=== PATIENT | female | born 1950 | race Asian ===

== ENCOUNTER 2016-12-09 00:59 | Emergency (ER) | payer OTHER ==
[2016-12-09 01:21] VITALS: PULSE 79; TEMP 98.2; BMI 29.6
--- NOTE | 2016-12-09 02:07 | PDOC ---
History of Present Illness - General History Source: Patient Exam Limitations: No Limitations - History of Present Illness Initial Comments: 12/09/16 02:38 The patient is a 66 year old female with a significant past medical history of CKD, HTN, depression, hypothyroidism, severe arthritis in left knee, and lyme disease (3 years ago) who presents to the ED with complaints of bilateral lower extremity rash for 2 weeks and bilateral lower extremity edema for 3 days. The patient reports she was sitting on the grass in her yard 3 weeks ago. She states that she notes multiple bug bites in her bilateral lower extremities. She reports she developed a rash throughout her bilateral lower extremities 2 weeks ago. Denies itching. She states she also developed dry patches throughout her bilateral lower extremities and breast after she developed the rash. Patient reports progressively worsening intermittent bilateral lower extremity edema for 3 days. She reports she is not urinating as frequently but is drinking water. Patient had an ultrasound done on 12/05/16 that showed a distended bladder without wall thickening, bilateral atrial jets, and tace of postvoid urine residue. Denies fevers or chills. Denies chest pain or shortness of breath. Denies dysuria or hematuria. Denies abdominal pain, nausea, vomiting, or diarrhea. Denies any other symptoms. Surgical hx: Hysterectomy 20 years ago. <Scott Meléndez - Last Filed: 12/09/16 02:38> <Kenia Valdivia - Last Filed: 12/12/16 22:24> - General Chief Complaint: Edema Stated Complaint: URINARY PROBLEM, EDEMA Time Seen by Provider: 12/09/16 01:07 Past History <Scott Meléndez - Last Filed: 12/09/16 02:38> - Past Medical History CVA: Yes (LT SIDED WEAKNESS.) HTN: Yes Hypercholesterolemia: Yes Psychiatric Problems: Yes (DEPRESSION.) Thyroid Disease: Yes Other medical history: depression - Surgical History Abdominal Surgery: Yes - Psycho/Social/Smoking Cessation Hx Anxiety: No Suicidal Ideation: No Smoking History: Never smoked Information on smoking cessation initiated: No Hx Alcohol Use: No Drug/Substance Use Hx: No Substance Use Type: None <Kenia Valdivia - Last Filed: 12/12/16 22:24> - Past Medical History Allergies/Adverse Reactions: Allergies Allergy/AdvReac Type Severity Reaction Status Date / Time No Known Allergies Allergy Verified 01/13/16 02:04 Home Medications: Ambulatory Orders Divalproex [Depakote -] 500 mg PO BID 04/20/14 Rosuvastatin Calcium [Crestor] 10 mg PO HS 02/23/15 Furosemide [Lasix -] 10 mg PO DAILY #30 tablet 01/14/16 Alprazolam [Xanax] 0.5 mg PO PRN 12/09/16 Carvedilol [Coreg -] 5 mg PO BID 12/09/16 Paroxetine HCl [Paxil -] 12.5 mg PO DAILY 12/09/16 Review of Systems - Review of Systems Able to Perform ROS?: Yes Comments:: 12/09/16 02:39 CONSTITUTIONAL: Absent: fever, chills, diaphoresis, generalized weakness, malaise, loss of appetite HEENT: Absent: rhinorrhea, nasal congestion, throat pain, throat swelling, difficulty swallowing, mouth swelling, ear pain, eye pain, visual Changes CARDIOVASCULAR: Absent: chest pain, syncope, palpitations, irregular heart rate, lightheadedness , peripheral edema RESPIRATORY: Absent: cough, shortness of breath, dyspnea with exertion, orthopnea, wheezing, stridor, hemoptysis GASTROINTESTINAL: Absent: abdominal pain, abdominal distension, nausea, vomiting, diarrhea, constipation, melena, hematochezia GENITOURINARY: + decrease in urinary output Absent: dysuria, frequency, urgency, hesitancy, hematuria, flank pain, genital pain MUSCULOSKELETAL: + leg swelling Absent: myalgia, arthralgia SKIN: + bug bites, rash, dry patches Absent: itching, pallor HEMATOLOGIC/IMMUNOLOGIC: Absent: easy bleeding, easy bruising, lymphadenopathy, frequent infections ENDOCRINE: Absent: unexplained weight gain, unexplained weight loss, heat intolerance, cold intolerance NEUROLOGIC: Absent: headache, focal weakness or paresthesias, dizziness, unsteady gait, seizure, mental status changes, bladder or bowel incontinence PSYCHIATRIC: Absent: anxiety, depression, suicidal or homicidal ideation, hallucinations. All Other Systems: Reviewed and Negative <Scott Meléndez - Last Filed: 12/09/16 02:38> *Physical Exam - Vital Signs Last Vital Signs Temp Pulse Resp BP Pulse Ox 98.2 F 79 18 180/70 98 12/09/16 01:17 12/09/16 01:17 12/09/16 01:17 12/09/16 01:17 12/09/16 01:17 - Physical Exam Comments: 12/09/16 02:39 GENERAL: Well developed, well nourished. Awake and alert. No acute distress. HEENT: Normocephalic, atraumatic. PERRLA, EOMI. No conjunctival pallor. Sclera are non- icteric. Moist mucous membranes. Oropharynx is clear. NECK: Supple. Full ROM. No JVD. Carotid pulses 2+ and symmetric, without bruits. No thyromegaly. NCo lymphadenopathy. CARDIOVASCULAR: Regular rate and rhythm. No murmurs, rubs, or gallops. Distal pulses are 2+ and symmetric. PULMONARY: No evidence of respiratory distress. Lungs clear to auscultation bilaterally. No wheezing, rales or rhonchi. ABDOMINAL: Soft. Non-tender. Non-distended. No rebound or guarding. No organomegaly. Normoactive bowel sounds. MUSCULOSKELETAL Normal range of motion at all joints. No bony deformities or tenderness. No CVA tenderness. EXTREMITIES: + Minimal pitting edema limited to the ankles bilaterally. Left knee osteoarthritis. No cyanosis. No clubbing. SKIN: + fine petechial rash diffusely throughout lower extremities bilaterally. Warm and dry. Normal capillary refill. No jaundice. NEUROLOGICAL: + resting tremor Alert, awake, appropriate. Cranial nerves 2-12 intact. No deficits to light touch and temperature in face, upper extremities and lower extremities. No motor deficits in the in face, upper extremities and lower extremities. Normoreflexic in the upper and lower extremities. Normal speech. Toes are down- going bilaterally. Gait is normal without ataxia. PSYCHIATRIC: Cooperative. Good eye contact. Appropriate mood and affect. <Scott Meléndez - Last Filed: 12/09/16 02:38> - Vital Signs Last Vital Signs Temp Pulse Resp BP Pulse Ox 98.2 F 79 18 180/70 98 12/09/16 01:17 12/09/16 01:17 12/09/16 01:17 12/09/16 01:17 12/09/16 01:17 <Kenia Valdivia - Last Filed: 12/12/16 22:24> ED Treatment Course - LABORATORY CBC & Chemistry Diagram: 12/09/16 02:47 12/09/16 02:47 <Kenia Valdivia - Last Filed: 12/12/16 22:24> Medical Decision Making - Medical Decision Making 12/12/16 22:23 Pt comes with multiple complaints: ankle swelling, petechial rash and fear of lyme recurrence. Labs normal. I spoke to her PMD. He will follow her as an outpatient. SHe has been advised to take her meds as prescribed. <Kenia Valdivia - Last Filed: 12/12/16 22:24> *DC/Admit/Observation/Transfer - Attestations Scribe Attestion: 12/09/16 02:39 Documentation prepared by Scott Meléndez, acting as medical observer for Kenia Valdivia MD <Scott Meléndez - Last Filed: 12/09/16 02:38> - Discharge Dispostion Admit: No <Kenia Valdivia - Last Filed: 12/12/16 22:24> Diagnosis at time of Disposition: Petechiae, Renal insufficiency, mild - Discharge Dispostion Disposition: HOME Condition at time of disposition: Stable - Referrals Referrals: Nataliya Stanley MD [Primary Care Provider] - - Patient Instructions Printed Discharge Instructions: DI for Petechiae
[2016-12-09] MEDS ORDERED: ACETAMINOPHEN 325 MG TABLET (FP) PO ONE (02:31)
[2016-12-09] MEDS ORDERED: VALSARTAN 40 MG TABLET (FP) PO ONE (02:32)
[2016-12-09] MEDS ORDERED: VALSARTAN 80 MG TABLET (UD) ONE (02:37)
[2016-12-09] MEDS ORDERED: ACETAMINOPHEN 325 MG TABLET (FP) ONE (02:37)
[2016-12-09 02:55] LABS: BASOPHIL 0.6 % (0-2.0); MCH 28.7 pg (25.7-33.7); MCHC 32.2 g/dl (32.0-36.0); MEAN CELL VOLUME 89.1 fl (80-96); MEAN PLT VOLUME 7.6 fl (7.5-11.1); NEUTROPHILS 47.1 % (42.8-82.8); PLATELET COUNT 234 K/MM3 (134-434); RDW 16.1 % (11.6-15.6); WHITE BLOOD COUNT 5.2 K/mm3 (4.0-10.0)
[2016-12-09 03:12] LABS: INR 0.96 (0.82-1.09); PROTHROMBIN TIME (PATIENT) 10.5 SEC (9.98-11.88)
[2016-12-09 03:23] LABS: ALBUMIN 3.5 g/dl (3.4-5.0); BILIRUBIN,TOTAL 0.2 mg/dL (0.2-1.0); CALCIUM 8.8 mg/dL (8.5-10.1); COCKROFT - GAULT 45.2285; CREATININE 1.4 mg/dL (0.55-1.02); TOT PROT 6.6 g/dl (6.4-8.2)
[2016-12-09 04:52] VITALS: BP 160/88
== END 2016-12-09 04:52 | disposition home or self-care (01) ==
LOC: JER 00:59
DX: R21 Rash and other nonspecific skin eruption (principal); R23.3 Spontaneous ecchymoses; S80.862A Insect bite (nonvenomous), left lower leg, initial encounter; S80.861A Insect bite (nonvenomous), right lower leg, initial encounter; W57.XXXA Bitten or stung by nonvenomous insect and other nonvenomous arthropods, initial encounter; Y93.89 Activity, other specified; Y92.89 Other specified places as the place of occurrence of the external cause; I12.9 Hypertensive chronic kidney disease with stage 1 through stage 4 chronic kidney disease, or unspecified chronic kidney disease; N18.9 Chronic kidney disease, unspecified; F32.9 Major depressive disorder, single episode, unspecified; E03.9 Hypothyroidism, unspecified; M13.862 Other specified arthritis, left knee
CPT/HCPCS: 36415; 80053; 85025; 85610; 85730; 99282-25

== ENCOUNTER 2017-01-06 08:53 | Day surgery (SDC) | payer OTHER ==
[2017-01-03 14:01] VITALS: BMI 29.6
[2017-01-06] MEDS ORDERED: PROPOFOL 20 ML ONE ×3 (09:59)
[2017-01-06 11:12] VITALS: TEMP 97.7
[2017-01-06 11:56] VITALS: BP 126/52; PULSE 53
--- NOTE | 2017-01-07 13:13 | PATH ---
Surgical Pathology Report Patient Name: EJREMIAH KIM [facility]. Rec. #: [id number] /Age/Gender: 1950 (Age: 66) / F Account: [id number] Location: U-ENDOSCOPY Taken: 01/06/2017 Received: 01/06/2017 Reported: 01/07/2017 Physicians: Tonia Willard M.D. Specimen(s) Received BX PROXIMAL TRANSVERSE COLON POLYP Clinical History Screening, constipation Diverticulosis, colon polyps Final Diagnosis COLON, PROXIMAL TRANSVERSE, POLYP, BIOPSY: FRAGMENTS OF INFLAMMATORY/POSTINFLAMMATORY-TYPE POLYPS. Electronically Signed Amol Hussein M.D. Gross Description Received in formalin, labeled "biopsy proximal transverse colon polyps" are 3 abad, irregular portions of soft tissue ranging from 0.3-0.4 cm in greatest dimension. The specimens are submitted in toto in one cassette. /01/06/201701/06/2017
== END 2017-01-06 12:02 | disposition home or self-care (01) ==
LOC: JASU-ENDO 08:53
PROVIDERS: ATTEND Internal Medicine Gastroenterology
PROC: 0DBL8ZX Excision of Transverse Colon, Via Natural or Artificial Opening Endoscopic, Diagnostic (ICD-10-PCS; principal; 2017-01-06 10:00)
DX: Z12.11 Encounter for screening for malignant neoplasm of colon (principal); K59.00 Constipation, unspecified; I12.9 Hypertensive chronic kidney disease with stage 1 through stage 4 chronic kidney disease, or unspecified chronic kidney disease; N18.9 Chronic kidney disease, unspecified; E78.5 Hyperlipidemia, unspecified; F32.9 Major depressive disorder, single episode, unspecified; H26.9 Unspecified cataract; K57.30 Diverticulosis of large intestine without perforation or abscess without bleeding; K64.9 Unspecified hemorrhoids
CPT/HCPCS: 88305-TC

== ENCOUNTER 2018-06-23 08:35 | Emergency (ER) | payer OTHER ==
[2018-06-23 08:47] VITALS: BP 160/68; PULSE 72; TEMP 98; BMI 29.6
--- NOTE | 2018-06-23 09:41 | PDOC ---
History of Present Illness - General Chief Complaint: Injury Stated Complaint: FALL Time Seen by Provider: 06/23/18 09:09 History Source: Patient Exam Limitations: No Limitations - History of Present Illness Initial Comments: 06/23/18 09:40 Patient states tripped over uneven carpet last night falling onto her left side. Complains of pain to her left hip, buttock, extending down through her femur to her knee. Has known osteoarthritis of her knee joint and wears a splint but is concerned about fractures. Patient has been ambulatory since the injury. Took Motrin this morning Occurred: reports: yesterday Severity: reports: mild, moderate Pain Location: reports: back, lower extremity (left side ), pelvis Method of Injury: Yes: fall Modifying Factors: improves with: None Loss of Consciousness: no loss of consciousness Associated Symptoms (Fall): denies symptoms Past History - Travel Traveled outside of the country in the last 30 days: No Close contact w/someone who was outside of country & ill: No - Past Medical History Allergies/Adverse Reactions: Allergies Allergy/AdvReac Type Severity Reaction Status Date / Time No Known Allergies Allergy Verified 01/13/16 02:04 Home Medications: Ambulatory Orders Divalproex [Depakote -] 500 mg PO BID 04/20/14 Rosuvastatin Calcium [Crestor] 10 mg PO HS 02/23/15 Furosemide [Lasix -] 10 mg PO DAILY #30 tablet 01/14/16 Carvedilol [Coreg -] 6.25 mg PO BID 12/09/16 Cancer: No CVA: Yes (LT SIDED WEAKNESS.) COPD: No CHF: No HTN: Yes Hypercholesterolemia: Yes Psychiatric Problems: Yes (DEPRESSION.) Thyroid Disease: Yes Other medical history: depression - Surgical History Abdominal Surgery: Yes - Immunization History Immunization Up to Date: No - Suicide/Smoking/Psychosocial Hx Smoking History: Never smoked Have you smoked in the past 12 months: No Information on smoking cessation initiated: No Hx Alcohol Use: No Drug/Substance Use Hx: No Substance Use Type: None Hx Substance Use Treatment: No Review of Systems - Review of Systems Able to Perform ROS?: Yes Is the patient limited Angolan proficient: Yes Constitutional: Yes: Symptoms Reported, See HPI. No: Fever, Malaise HEENTM: Yes: See HPI. No: Symptoms Reported Respiratory: Yes: See HPI. No: Symptoms reported Musculoskeletal: Yes: Symptoms Reported, See HPI, Back Pain, Joint Pain (left hip / left knee ) Integumentary: Yes: See HPI. No: Symptoms Reported, Bruising All Other Systems: Reviewed and Negative *Physical Exam - Vital Signs Last Vital Signs Temp Pulse Resp BP Pulse Ox 98.0 F 72 16 160/68 98 06/23/18 08:42 06/23/18 08:42 06/23/18 08:42 06/23/18 08:42 06/23/18 08:42 - Physical Exam General Appearance: Yes: Nourished, Appropriately Dressed, Mild Distress HEENT: positive: MEG, Normal ENT Inspection, TMs Normal, Pharynx Normal Neck: positive: Supple Gastrointestinal/Abdominal: positive: Soft. negative: Tender Musculoskeletal: positive: Normal Inspection, CVA Tenderness, Decreased Range of Motion (limited but able to abduct/ forward flex with no pain or immobility. No deformity, no bruising, no crepitus or step-offs any bony prominence or long bone. Neurovascular intact to foot. Knees bilaterally have arthritic changes, right leg worse than the left no true laxity. The patient is ambulatory but walks slowly). negative: CVA Tenderness (R), Muscle Spasm, Vertebral Tenderness Extremity: positive: Normal Capillary Refill, Normal Range of Motion, Pelvis Stable (without tenderness) Integumentary: positive: Normal Color. 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 Patient encouraged to use Alexander wraps for support, cane to assist and ambulated and follow-up with orthopedist as needed *DC/Admit/Observation/Transfer Diagnosis at time of Disposition: Multiple contusions - Discharge Dispostion Disposition: HOME Condition at time of disposition: Stable Decision to Admit order: No - Referrals Referrals: Nataliya Stanlye MD [Primary Care Provider] - Ray Kelley MD [Staff Physician] - - Patient Instructions Printed Discharge Instructions: DI for Knee Sprain Additional Instructions: Rest, ice to area on and off for 15 minutes 4-6 times a day Avoid heavy lifting or exercise until pain and swelling is resolved or until further directed Keep area highly elevated to reduce swelling Use splints/Alexander wrap as directed Followup with orthopedist in one to 2 days if not improving, if significantly improved may wait one week for followup with orthopedist May use ibuprofen 2-200 mg tablets every 6 hours as needed for pain - Post Discharge Activity Forms/Work/School Notes: Back to Work
== END 2018-06-23 09:52 | disposition home or self-care (01) ==
LOC: JERFT 08:35
DX: T14.8XXA Other injury of unspecified body region, initial encounter (principal); W18.09XA Striking against other object with subsequent fall, initial encounter; Y93.89 Activity, other specified; Y92.89 Other specified places as the place of occurrence of the external cause; F32.9 Major depressive disorder, single episode, unspecified; E78.00 Pure hypercholesterolemia, unspecified; E07.9 Disorder of thyroid, unspecified; I10 Essential (primary) hypertension; Z86.73 Personal history of transient ischemic attack (TIA), and cerebral infarction without residual deficits
CPT/HCPCS: 73562-TC-LT-FY; 99281-25

== ENCOUNTER 2018-09-06 17:14 | Emergency (ER) | payer OTHER ==
[2018-09-06 17:29] VITALS: BP 154/80; PULSE 85; TEMP 97.3; BMI 29.2
--- NOTE | 2018-09-06 18:24 | PDOC ---
History of Present Illness - General Chief Complaint: Hematuria Stated Complaint: UTI SYMPTOMS Time Seen by Provider: 09/06/18 18:22 - History of Present Illness Initial Comments: 09/06/18 18:37 The patient is a 68 year old female with a PMH of HTN, BPD who presents to our ED c/o 6 day h/o hematuria. Patient she started feeling pain with urination around August 31 while traveling in Winter. Pain persisted and she started noticing blood earlier this week prompting her visit to an urgent care. Patient was prescribed a 14 day course of Macrobid as well as Pydrium. States she has been taking medication as prescribed. 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 The patients denies chest pain, shortness of breath, abdominal pain, nausea/ vomiting, diarrhea/constipation, lower extremity swelling. NKDA Surgical: hysterectomy Social: denies toxic habits PMD: Dr. Nataliya Stanley Past History - Past Medical History Allergies/Adverse Reactions: Allergies Allergy/AdvReac Type Severity Reaction Status Date / Time No Known Allergies Allergy Verified 01/13/16 02:04 Home Medications: Ambulatory Orders Divalproex [Depakote -] 500 mg PO BID 04/20/14 Rosuvastatin Calcium [Crestor] 10 mg PO HS 02/23/15 Furosemide [Lasix -] 10 mg PO DAILY #30 tablet 01/14/16 Carvedilol [Coreg -] 6.25 mg PO BID 12/09/16 Sulfamethoxazole/Trimethoprim [Bactrim Ds Tablet] 1 each PO BID #14 tablet 09/06 Cancer: No CVA: Yes (LT SIDED WEAKNESS.) COPD: No CHF: No HTN: Yes Hypercholesterolemia: Yes Psychiatric Problems: Yes (DEPRESSION.) Thyroid Disease: Yes - Surgical History Abdominal Surgery: Yes - Immunization History Immunization Up to Date: No - Suicide/Smoking/Psychosocial Hx Smoking History: Never smoked Have you smoked in the past 12 months: No Information on smoking cessation initiated: No Hx Alcohol Use: No Drug/Substance Use Hx: No Substance Use Type: None Hx Substance Use Treatment: No Review of Systems - Review of Systems Constitutional: No: Chills, Fever HEENTM: No: Recent change in vision Respiratory: No: Cough, Shortness of Breath Cardiac (ROS): No: Chest Pain, Lightheadedness, Palpitations, Syncope ABD/GI: No: Constipated, Diarrhea, Nausea, Vomiting : Yes: Dysuria, Hematuria *Physical Exam - Vital Signs Last Vital Signs Temp Pulse Resp BP Pulse Ox 97.3 F L 85 20 154/80 97 09/06/18 17:26 09/06/18 17:26 09/06/18 17:26 09/06/18 17:26 09/06/18 17:26 - Physical Exam General Appearance: Yes: Nourished, Appropriately Dressed HEENT: positive: Normal Voice, Hearing Grossly Normal Neck: positive: Trachea midline, Supple Respiratory/Chest: positive: Lungs Clear, Normal Breath Sounds Cardiovascular: positive: S1, S2. negative: Edema, JVD, Murmur Gastrointestinal/Abdominal: positive: Soft, Other (Mild TTP in B/L UQ) Musculoskeletal: negative: CVA Tenderness (R), CVA Tenderness (L) Extremity: positive: Normal Capillary Refill, Normal Inspection Integumentary: positive: Normal Color, Dry, Warm Neurologic: positive: Fully Oriented, Alert Moderate Sedation - Procedure Monitoring Vital Signs: Procedure Monitoring Vital Signs Temperature 97.3 F L 09/06/18 17:26 Pulse Rate 85 09/06/18 17:26 Respiratory Rate 20 09/06/18 17:26 Blood Pressure 154/80 09/06/18 17:26 O2 Sat by Pulse Oximetry (%) 97 09/06/18 17:26 ED Treatment Course - LABORATORY CBC & Chemistry Diagram: 09/06/18 19:00 09/06/18 19:04 Medical Decision Making - Medical Decision Making 09/06/18 18:46 68 year old female with hematuria, dysuria h/o recent travel in Winter. VS unremarkable. Mild abdominal TTP in B/L UQ. Frontal diagnosis: cystitis including treatment resistant UTI and hemorrhagic cystitis, nephrolithiasis, less likely malignancy. Will obtain UA/UCx and CT Abdomen. Reassess. 09/06/18 19:38 UA shows 3+ blood, 2+ LE, 418 WBC CBC shows no leukocytosis CMP unremarkable 09/06/18 21:06 Patient ambulatory, continues to c/o dysuria CT read pending 09/06/18 21:09 CT abdomen negative for acute pathology At this time, suspect patient has MDR UTI. Will give broader spectrum coverage , Bactrim as no prior Urine Cx in EMR. Discharge home with return precautions and PMD follow-up within the next 3 days. 09/06/18 21:30 Patient counseled on plan of care. I discussed the physical exam findings, ancillary test results and final diagnoses with the patient. I answered all of the patient's questions. The patient was satisfied with the care received and felt comfortable with the discharge plan and treatment plan. The patient will return to the Emergency Department with any new, persistent or worsening symptoms. *DC/Admit/Observation/Transfer Diagnosis at time of Disposition: Urinary tract infection - Discharge Dispostion Disposition: HOME Condition at time of disposition: Good Decision to Admit order: No - Prescriptions Prescriptions: Sulfamethoxazole/Trimethoprim [Bactrim Ds Tablet] 1 each PO BID #14 tablet - Referrals Referrals: Nataliya Stanley MD [Primary Care Provider] - - Patient Instructions Printed Discharge Instructions: DI for Urinary Tract Infection (UTI) Additional Instructions: We have sent a prescription to your pharmacy. Please take the entire antibiotic course as prescribed. Please make an appointment for evaluation by Dr. Stanley in the next 3 days. We are providing you with a copy of your CT scan. Please take this copy with you to your appointment. Return to the Emergency Department for any new/worsening/concerning symptoms. - Post Discharge Activity
[2018-09-06] MEDS ORDERED: SODIUM CHLORIDE 0.9% 500 ML INFUS.BAG IV ONE (18:37)
[2018-09-06 19:09] LABS: URINE APPEARANCE CLOUDY; URINE COLOR AMBER; URINE GLUCOSE (UA) NEGATIVE (NEGATIVE); URINE KETONE NEGATIVE (NEGATIVE); URINE LEUK ESTERASE 2+ (NEGATIVE); URINE NITRITE POSITIVE (NEGATIVE); URINE PROTEIN 2+ (NEGATIVE); URINE UROBILINOGEN 4.0 E.U/dl mg/dL (0.2-1.0)
[2018-09-06 19:20] LABS: EPI CELLS RARE /HPF (FEW)
[2018-09-06 19:26] LABS: BASO % 0.7 % (0-2.0); HEMATOCRIT 39.1 % (32.4-45.2); HEMOGLOBIN 13.1 GM/dL (10.7-15.3); LYMPH % 38.3 % (8-40); MCH 29.7 pg (25.7-33.7); MCHC 33.5 g/dl (32.0-36.0); MEAN CELL VOLUME 88.7 fl (80-96); MEAN PLT VOLUME 7.5 fl (7.5-11.1); MONO % 12.4 % (3.8-10.2); NEUT % 45.6 % (42.8-82.8); PLATELET COUNT 310 K/MM3 (134-434); RBC 4.41 M/mm3 (3.60-5.2); RDW 13.3 % (11.6-15.6); WHITE BLOOD COUNT 9.6 K/mm3 (4.0-10.0)
[2018-09-06 19:48] LABS: ALBUMIN 3.4 g/dl (3.4-5.0); ALK PHOS 118 U/L (45-117); ANION GAP 10 MMOL/L (8-16); BILIRUBIN,TOTAL 0.3 mg/dL (0.2-1); BLOOD UREA NITROGEN 23 mg/dL (7-18); CALCIUM 9.2 mg/dL (8.5-10.1); CHLORIDE 103 mmol/L (98-107); CO2 25 mmol/L (21-32); CREATININE 1.2 mg/dL (0.55-1.3); GLUCOSE,RANDOM 89 mg/dL (74-106); POTASSIUM 4.8 mmol/L (3.5-5.1); SGOT/AST 10 U/L (15-37); SGPT/ALT 14 U/L (13-61); SODIUM 138 mmol/L (136-145); TOT PROT 7.1 g/dl (6.4-8.2)
== END 2018-09-06 21:42 | disposition home or self-care (01) ==
LOC: JER 17:14
DX: N39.0 Urinary tract infection, site not specified (principal); R31.9 Hematuria, unspecified; I10 Essential (primary) hypertension; E78.00 Pure hypercholesterolemia, unspecified; F32.9 Major depressive disorder, single episode, unspecified; E07.9 Disorder of thyroid, unspecified; I69.854 Hemiplegia and hemiparesis following other cerebrovascular disease affecting left non-dominant side
CPT/HCPCS: 36415; 74177-TC; 80053; 81003; 81015; 85025; 87086; 99282-25

== ENCOUNTER 2018-11-20 15:21 | Inpatient (IN) | payer OTHER | END 2018-11-24 11:03 | disposition home or self-care (01) | LOC: JER 15:21 → J5S 18:12 ==

== ENCOUNTER 2019-04-17 08:19 | Inpatient (IN) | payer OTHER ==
--- NOTE | 2019-04-17 08:39 | PDOC ---
History of Present Illness - General Chief Complaint: Injury Stated Complaint: FALL Time Seen by Provider: 04/17/19 08:38 History Source: Patient Exam Limitations: No Limitations - History of Present Illness Initial Comments: Leo Monteiro is a 68 yo F with a history of HTN, HLD, shoulder arthritis and depression who presents to the [facility] er after she fell down yesterday and now has left knee pain. The patient states she was walking and her shoe got caught under the rug which caused her to fall forward and landed on her left knee. Since she landed on her knee she has been having a very hard time walking. The patient states that she has chronic knee pain from her arthritis and this fall exacerbated her chronic knee problems. She states she also fell 4 days ago when she tripped on a chair, fell backward and hit her head. She states she has been experiencing a mild headache and hip pain since her fall 4 days ago. 4 days ago when she fell she did not experience any LOC but the patient takes a baby aspirin on a daily basis. Denies having experienced any chest pain, lightheadedness, shortness of breath, extremity weakness/numbness/tingling or chills, fevers, dysuria, frequency, urgency, back or neck pain. PCP: Dr. Nataliya Stanley PSH: Hysterectomy Allergies: NKA, NKDA Social Hx: Denies smoking, drinking, or other substance usage Past History - Past Medical History Allergies/Adverse Reactions: Allergies Allergy/AdvReac Type Severity Reaction Status Date / Time No Known Allergies Allergy Verified 04/17/19 08:30 Home Medications: Ambulatory Orders Atorvastatin Ca [Lipitor] 10 mg PO HS 11/20/18 Carvedilol [Coreg -] 25 mg PO DAILY 11/20/18 Divalproex Sodium [Depakote ER] 500 mg PO BID 11/20/18 Lorazepam [Ativan] 0.5 mg PO QID PRN 11/20/18 Memantine HCl 5 mg PO BID 11/20/18 Paroxetine HCl [Paxil Cr] 12.5 mg PO DAILY 11/20/18 Bupropion HCl [Bupropion HCl Sr] 100 mg PO DAILY 04/17/19 l-Mefol/A-Cyst/Meb12/Algal Oil [Cerefolin Nac Caplet] 1 each PO DAILY 04/17/19 Cancer: No CVA: Yes (LT SIDED WEAKNESS.) COPD: No CHF: No Disorders: No HTN: Yes Hypercholesterolemia: Yes Psychiatric Problems: Yes (DEPRESSION.) Thyroid Disease: Yes (not on meds) - Surgical History Abdominal Surgery: Yes - Immunization History Immunization Up to Date: Yes - Psycho Social/Smoking Cessation Hx Smoking History: Never smoked Have you smoked in the past 12 months: No Hx Alcohol Use: No Drug/Substance Use Hx: No Substance Use Type: None Hx Substance Use Treatment: No Review of Systems - Review of Systems Able to Perform ROS?: Yes Comments:: CONSTITUTIONAL: Absent: fever, no chills, no fatigue EYES: Absent: visual changes ENT: Absent: ear pain, no sore throat CARDIOVASCULAR: Absent: chest pain, no palpitations RESPIRATORY: Absent: cough, no SOB GI: Absent: abdominal pain, no nausea, no vomiting, no constipation, no diarrhea GENITOURINARY: Absent: dysuria, no frequency, no hematuria MUSKULOSKELETAL: Present: arthralgia Absent: back pain, no myalgia SKIN: Absent: rash NEURO: Present: headache *Physical Exam - Vital Signs Last Vital Signs Temp Pulse Resp BP Pulse Ox 98 F 66 16 128/48 L 99 04/17/19 08:20 04/17/19 08:20 04/17/19 08:20 04/17/19 08:20 04/17/19 08:20 - Physical Exam Comments: GENERAL: Well-appearing, well-nourished. No apparent distress. HEENT: Normocephalic, atraumatic. PERRL, EOM intact. CARDIOVASCULAR: Normal S1, S2. Regular rate and rhythm. PULMONARY: No evidence of respiratory distress. Lungs clear to auscultation bilaterally. No wheezing, rales or rhonchi. ABDOMEN: Soft, non-distended, non-tender. LEFT KNEE: The knee has limited ROM. There is no bony TTP. EXTREMITIES: 2+ PT and DP pulses in both ankles. Normal ROM in other 3 extremities aside from left knee. No gross deformities. SKIN: Warm, dry. No rash NEUROLOGICAL: No focal neurological deficits. ED Treatment Course - LABORATORY CBC & Chemistry Diagram: 04/17/19 14:14 04/17/19 14:14 Medical Decision Making - Medical Decision Making Leo Monteiro is a 68 yo F with a history of HTN, HLD, shoulder arthritis and depression who presents to the [facility] er after she fell down yesterday and now has left knee pain. The patient states she was walking and her shoe got caught under the rug which caused her to fall forward and landed on her left knee. Since she landed on her knee she has been having a very hard time walking. The patient states that she has chronic knee pain from her arthritis and this fall exacerbated her chronic knee problems. She states she also fell 4 days ago when she tripped on a chair, fell backward and hit her head. She states she has been experiencing a mild headache and hip pain since her fall 4 days ago. 4 days ago when she fell she did not experience any LOC but the patient takes a baby aspirin on a daily basis. Denies having experienced any chest pain, lightheadedness, shortness of breath, extremity weakness/numbness/tingling or chills, fevers, dysuria, frequency, urgency, back or neck pain. Vital Signs Temp Pulse Resp BP Pulse Ox 98 F 66 16 128/48 L 99 04/17/19 08:20 04/17/19 08:20 04/17/19 08:20 04/17/19 08:20 04/17/19 08:20 BP at bedside: Right arm: 138/59 Left arm: 151/63 DDx IBNLT: Brain bleed, Cervical fx, hip fx, knee fx, arrhythmia Plan: UA/uc, CT, XR, EKG, analgesia, re-assess. EKG: NS rate of 64, narrow complexes, normal axis, no hypertrophy, no ST elevations or depressions, no abnormal TWI's, no Q waves, QTc 414, ND 144. Impression: Normal EKG Labs: CMP Sodium 142 mmol/L (136-145) 04/17/19 14:14 Potassium 5.6 mmol/L (3.5-5.1) H 04/17/19 14:14 Chloride 111 mmol/L (98-107) H 04/17/19 14:14 Carbon Dioxide 24 mmol/L (21-32) 04/17/19 14:14 Anion Gap 7 MMOL/L (8-16) L 04/17/19 14:14 BUN 30.3 mg/dL (7-18) H 04/17/19 14:14 Creatinine 1.7 mg/dL (0.55-1.3) H 04/17/19 14:14 Est GFR (CKD-EPI)AfAm 35.05 04/17/19 14:14 Est GFR (CKD-EPI)NonAf 30.24 04/17/19 14:14 Random Glucose 144 mg/dL (74-106) H 04/17/19 14:14 Calcium 9.1 mg/dL (8.5-10.1) 04/17/19 14:14 Total Bilirubin 0.2 mg/dL (0.2-1) 04/17/19 14:14 AST 14 U/L (15-37) L 04/17/19 14:14 ALT 12 U/L (13-61) L 04/17/19 14:14 Alkaline Phosphatase 95 U/L (45-117) 04/17/19 14:14 Total Protein 6.1 g/dl (6.4-8.2) L 04/17/19 14:14 Albumin 3.1 g/dl (3.4-5.0) L 04/17/19 14:14 UA: Unremarkable - XR: No acute fx - CT: No ICH PT consult: PT reccomends admission to hospital bc patient is at risk for falling and is not stable to go home. - Patient is a danger to herself as she has falen down multiple times in the past week Dispo: Admit to hospital for inability to ambulate. Discharge - Discharge Information Problems reviewed: Yes Clinical Impression/Diagnosis: Inability to ambulate due to left knee, Repeated falls, Need for physical therapy assessment, EVERTON (acute kidney injury), Hyperkalemia Condition: Stable - Admission Yes - Follow up/Referral - Patient Discharge Instructions - Post Discharge Activity
[2019-04-17] MEDS ORDERED: ACETAMINOPHEN 325 MG TABLET (FP) PO ONE (08:47)
[2019-04-17] MEDS ORDERED: ACETAMINOPHEN 325 MG TABLET (FP) ONE (09:18)
--- NOTE | 2019-04-17 10:31 | PDOC ---
Attending Attestation - Resident Resident Name: Paul Akbar - ED Attending Attestation I have performed the following: I have examined & evaluated the patient, The case was reviewed & discussed with the resident, I agree w/resident's findings & plan, Exceptions are as noted - HPI HPI: 04/17/19 10:29 68 F with h/o HTN, HLD, arthritis presenting to ED with L knee pain after fall yesterday. Pt states that she tripped after her shoe got caught on the rug. Pt fell forward onto her L knee. Denies headstrike/LOC. However, she notes that 4 days ago she had another fall when she tripped over a chair. She fell backwards that time and hit her head. Pt currently reports pain in her L knee with mild headache and hip pain. Pt denies any lightheadedness/dizziness prior to falling. Denies CP/SOB/palpitations. - Physicial Exam PE: 04/17/19 10:31 Agree w/ resident exam - Medical Decision Making 04/17/19 10:31 68 F with mechanical fall x 2 over past 4 days. Now with L knee pain and headache. - CT head/c-spine - XRs 04/17/19 12:01 XRs negative Pt evaluated by PT, who recommends sub-acute rehab Will admit for placement.
[2019-04-17 13:45] LABS: URINE APPEARANCE CLEAR; URINE BILIRUBIN NEGATIVE (NEGATIVE); URINE COLOR YELLOW; URINE GLUCOSE (UA) NEGATIVE (NEGATIVE); URINE KETONE NEGATIVE (NEGATIVE); URINE LEUK ESTERASE NEGATIVE (NEGATIVE); URINE NITRITE NEGATIVE (NEGATIVE); URINE PROTEIN NEGATIVE (NEGATIVE); URINE UROBILINOGEN 0.2 mg/dL (0.2-1.0)
[2019-04-17 14:29] LABS: BASO % 0.7 % (0-2.0); EOS % 1.6 % (0-4.5); HEMATOCRIT 33.2 % (32.4-45.2); HEMOGLOBIN 10.8 GM/dL (10.7-15.3); LYMPH % 37.4 % (8-40); MCH 28.6 pg (25.7-33.7); MCHC 32.6 g/dl (32.0-36.0); MEAN CELL VOLUME 87.6 fl (80-96); MONO % 10.3 % (3.8-10.2); PLATELET COUNT 259 K/MM3 (134-434); RBC 3.79 M/mm3 (3.60-5.2); RDW 13.6 % (11.6-15.6); WHITE BLOOD COUNT 7.6 K/mm3 (4.0-10.0)
[2019-04-17 14:47] LABS: ALBUMIN 3.1 g/dl (3.4-5.0); BILIRUBIN,TOTAL 0.2 mg/dL (0.2-1); BLOOD UREA NITROGEN 30.3 mg/dL (7-18); CALCIUM 9.1 mg/dL (8.5-10.1); CREATININE 1.7 mg/dL (0.55-1.3); POTASSIUM 5.6 mmol/L (3.5-5.1); TOT PROT 6.1 g/dl (6.4-8.2)
--- NOTE | 2019-04-17 15:00 | PN ---
Teaching Attending Note Name of Resident: Andrews Miranda ATTENDING PHYSICIAN STATEMENT I saw and evaluated the patient. I reviewed the resident's note and discussed the case with the resident. I agree with the resident's findings and plan as documented. SUBJECTIVE: CC: fall HPI: 68 y/o woman with h/o HTN, Bipolar disease, OA in L knee , GI bleed 2/2 gastric ulcers from NSAIDS use, HLP, and other medical problems who presented with L knee pain after a fall yesterday she tripped while walking and fell to land on her L knee. She fell backwards 4 days ago and hit her head. no LOC. also mechanical fall. she also had another mechanical fall in the past week. she complained of GARCIA in ER and was given pain meds so her GARCIA has resolved now. no visula changes, no weakness, no dysuria , but has frequency and intermittent incontinence ( chronic). L kne pain which is now better after pain meds. she has L knee OA with L knee effusion, with h/o steroids shots in knee OBJECTIVE: NAD , awake, alert, oriented x3 . HEENt: slightly dry MM. no JVD, tongue at mid line, no facial droop. lenses in both eyes CV: RRR, 3/6 SM all over the precordium, but bes heard at apex. with no radiation to axilla or carotids Lungs: CTAB Abd: soft, obese, NT, ND, NL BS. Ext : No edema or erythema. L knee effusion ( very small and minimal). No erythema. slowly bends th knee to 30 degrees. DO , PT 2+ b/l. no fungal infectin in interdigital webs Neuro: EOMI, no facial droop, round pupils, minimally reactive to light. tongue and uvula at midline Strength 5/5 in upper and lower extremities , proximally and distally despite knee pain. reflexes 2+ biceps , 2+ R knee jerk, L knee jerk was not tested due to pain. nl sensation to light touch maging: CT head and C spine, and pelvis, hip, knee xrays reviewed. EKG : with sinus rhythm, No st or TW changes ASSESSMENT AND PLAN: 68 y/o woman with h/o HTN, Bipolar disease, OA in L knee , GI bleed 2/2 gastric ulcers from NSAIDS use, HLP, and other medical problems who presented with L knee pain after a fall 1- L knee pain after a fall: likely worsening OA with small effusion . No Fx on xray. - lidocaine patch - tylenol PRN - PT - out pt ortho f/u . 2- Mechanical falls. - need PT - f/u with neuro as out pt to evaluate for movement disorder - head CT and C- spine with no Fx or bleed - check orthostatic VS 3- EVERTON: possibly prerenal, or due to NSAIds use - start IVF - hold home losartan 4- hyperkalemia: due to EVERTON and ARB. No EKG changes - hold ARB - repeat K at 8 pm 5- h/o Bipolar: cont psych meds . Dispo: HLOC . PT eval.
--- NOTE | 2019-04-17 15:27 | HP ---
CHIEF COMPLAINT: s/p fall PCP: Nataliya Stanley HISTORY OF PRESENT ILLNESS: 68 year old female with a history of hypertension, hyperlipidemia, arthritis, bipolar disorder, recent GI bleed (several months ago) due to gastric ulcer (s/ p EGD) presents s/p mechanical fall yesterday. Reports that she was walking, tripped over her rug and hit her L knee and left side of her body. She was unable to stand up and crawled to a railing where she was able to call her to help her. She reports that she fell 3 times this week, worst of which was 4 days ago when she hit her head on the back. Reports that she has been more frequently falling this year compared to previous years, reporting that they are all mechanical in nature without loss of consciousness or confusion. of the patient states that she is not more ataxic or unsteady compared to baseline. also reports that her speech is at baseline. Patient states that she walked a few feet but had to stop due to pain. Physical therapy saw the patient reports that she would likely benefit from inpatient mobilization and ambulation prior to discharge. Currently the patient reports minimal pain in the left knee and mild headache. Denies chest pain, SOB, nausea, vomiting, diarrhea, fevers, chills. ER course was notable for: (1) EKG NSR without significant changes, QTc normal (2) L knee XR significant for suprapatellar joint effusion, no (3) Recent Travel: denies PAST MEDICAL HISTORY: hypertension, hyperlipidemia, arthritis, bipolar disorder , recent GI bleed PAST SURGICAL HISTORY: hysterectomy 25 years ago Social History: Smoking: never Alcohol: never Drugs: never Family History: no history of bleeding, bruising, cancers, strokes, heart disease, or diabetes Allergies No Known Allergies Allergy (Verified 04/17/19 08:30) HOME MEDICATIONS: Home Medications Medication Instructions Recorded Atorvastatin Ca [Lipitor] 10 mg PO HS 11/20/18 Carvedilol [Coreg -] 25 mg PO DAILY 11/20/18 Divalproex Sodium [Depakote ER] 500 mg PO BID 11/20/18 Lorazepam [Ativan] 0.5 mg PO QID PRN 11/20/18 Memantine HCl 5 mg PO BID 11/20/18 Paroxetine HCl [Paxil Cr] 12.5 mg PO DAILY 11/20/18 Bupropion HCl [Bupropion HCl Sr] 100 mg PO DAILY 04/17/19 l-Mefol/A-Cyst/Meb12/Algal Oil 1 each PO DAILY 04/17/19 [Cerefolin Nac Caplet] REVIEW OF SYSTEMS CONSTITUTIONAL: Absent: fever, chills, diaphoresis, generalized weakness, malaise, loss of appetite, weight change HEENT: Absent: rhinorrhea, nasal congestion, throat pain, throat swelling, difficulty swallowing, mouth swelling, ear pain, eye pain, visual changes CARDIOVASCULAR: Absent: chest pain, syncope, palpitations, irregular heart rate, lightheadedness , peripheral edema RESPIRATORY: Absent: cough, shortness of breath, dyspnea with exertion, orthopnea, wheezing, stridor, hemoptysis GASTROINTESTINAL: Absent: abdominal pain, abdominal distension, nausea, vomiting, diarrhea, constipation, melena, hematochezia GENITOURINARY: Absent: dysuria, frequency, urgency, hesitancy, hematuria, flank pain, genital pain MUSCULOSKELETAL: joint swelling Absent: myalgia, arthralgia, back pain, neck pain SKIN: Absent: rash, itching, pallor HEMATOLOGIC/IMMUNOLOGIC: Absent: easy bleeding, easy bruising, lymphadenopathy, frequent infections ENDOCRINE: Absent: unexplained weight gain, unexplained weight loss, heat intolerance, cold intolerance NEUROLOGIC: headache Absent: focal weakness or paresthesias, dizziness, unsteady gait, seizure, mental status changes, bladder or bowel incontinence PSYCHIATRIC: Absent: anxiety, depression, suicidal or homicidal ideation, hallucinations. PHYSICAL EXAMINATION Vital Signs - 24 hr 04/17/19 04/17/19 08:20 14:35 Temperature 98 F 98.1 F Pulse Rate 66 Pulse Rate [ 68 Apical] Respiratory 16 20 Rate Blood Pressure 128/48 L Blood Pressure 132/52 L [Right Arm] O2 Sat by Pulse 99 100 Oximetry (%) GENERAL: A&Ox3, no acute distress EYES: PERRLA, EOMI ENT: Moist mucus membranes NECK: No JVD LUNGS: CTA, no wheezes HEART: systolic murmur noted on exam, no murmurs ABDOMEN: Soft, nontender, BS present MUSCULOSKELETAL: No CVA Tenderness EXTREMITIES: 2+ pulses, no edema, mild tenderness elicited on palpation of L knee, no erythema of L knee, no tenderness to palpation of the L or R hip NEUROLOGICAL: Cranial nerves II-XII intact. Full ROM elicited. minimal difference in motor strength between leg extension with weakness on L due to pain, otherwise 5/5 motor strength throughout and sensation is intact. Reflexes difficult to assess due to pain in the knees. no dysmetria Laboratory Results - last 24 hr 04/17/19 04/17/19 04/17/19 13:24 14:14 14:14 WBC 7.6 RBC 3.79 Hgb 10.8 Hct 33.2 MCV 87.6 MCH 28.6 MCHC 32.6 RDW 13.6 Plt Count 259 MPV 8.0 Absolute Neuts (auto) 3.8 Neutrophils % 50.0 Lymphocytes % 37.4 Monocytes % 10.3 H Eosinophils % 1.6 Basophils % 0.7 Nucleated RBC % 0 Sodium 142 Potassium 5.6 H Chloride 111 H Carbon Dioxide 24 Anion Gap 7 L BUN 30.3 H Creatinine 1.7 H Est GFR (CKD-EPI)AfAm 35.05 Est GFR (CKD-EPI)NonAf 30.24 Random Glucose 144 H Calcium 9.1 Total Bilirubin 0.2 AST 14 L ALT 12 L Alkaline Phosphatase 95 Total Protein 6.1 L Albumin 3.1 L Urine Color Yellow Urine Appearance Clear Urine pH 5.0 Ur Specific [place] 1.013 Urine Protein Negative Urine Glucose (UA) Negative Urine Ketones Negative Urine Blood Negative Urine Nitrite Negative Urine Bilirubin Negative Urine Urobilinogen 0.2 Ur Leukocyte Esterase Negative ASSESSMENT/PLAN: 68 year old female with a history of hypertension, hyperlipidemia, arthritis, bipolar disorder, recent GI bleed (several months ago) due to gastric ulcer (s/ p EGD) presents s/p mechanical fall yesterday and admitted for evaluation of weakness/pain #L Knee Pain: s/p mechanical fall; suspicious that patient has been falling more frequently than usual -Knee XR shows arthritic changes w/ joint effusion -XR R hip shows no abnormalities -local pain control with acetaminophen -physical therapy to work with patient while inpatient -will need neuro assessment as an outpatient for neuromuscular disorders that could be leading her to have multiple mechanical falls -fall precautions #Acute Kidney Injury: creatinine 1.7, was normal on last admission; this is likely prerenal azotemia -hold nephrotoxic medications -started IVF -repeat BMP at 8pm tonight, if still elevated will start workup for acute kidney injury #Hyperkalemia: no EKG changes -hold the losartan -IVF -repeat potassium at 8pm #Bipolar Disorder: chronic -continue paxil, memantine, bupropion, and ativan for anxiety -continue depakoke #Hypertension: BP stable today -continue carvedilol 25 PO Daily #Hyperlipidemia: chronic -continue atorvastatin #FEN -NS @ 75cc/hr -repeat BMP at 8pm and 6am tomorrow -regular diet #Prophylaxis -heparin 5000 SubQ TID #Disposition -admit med-surg, anticipate DC friday Visit type - Emergency Visit Emergency Visit: Yes ED Registration Date: 04/17/19 Care time: The patient presented to the Emergency Department on the above date and was hospitalized for further evaluation of their emergent condition. - New Patient This patient is new to me today: Yes Date on this admission: 04/17/19 - Critical Care Critical Care patient: No ATTENDING PHYSICIAN STATEMENT I saw and evaluated the patient. I reviewed the resident's note and discussed the case with the resident. I agree with the resident's findings and plan as documented. SUBJECTIVE: OBJECTIVE: ASSESSMENT AND PLAN:
[2019-04-17 15:46] VITALS: BMI 29.9
[2019-04-17] MEDS: SODIUM CHLORIDE 1,000 ML IV SCH (16:45)
[2019-04-17] MEDS: HEPARIN NA (PORCINE) 5,000 UNITS/ML 1ML VIAL SQ SCH ×2 (16:52→22:47)
[2019-04-17] MEDS: LIDOCAINE 5% TOPICAL PATCH TP SCH (17:57)
[2019-04-17 20:53] LABS: BLOOD UREA NITROGEN 32.8 mg/dL (7-18); CALCIUM 8.6 mg/dL (8.5-10.1); CREATININE 1.7 mg/dL (0.55-1.3); POTASSIUM 4.9 mmol/L (3.5-5.1)
[2019-04-17] MEDS ORDERED: BUPROPRION 100 MG PO SCH (22:00)
[2019-04-17] MEDS: DIVALPROEX SODIUM 500 MG TABLET E.C. PO SCH (22:47)
[2019-04-17] MEDS: ATORVASTATIN CA 10 MG TABLET (FP) PO SCH (22:47)
[2019-04-17] MEDS: MEMANTINE HCL 5 MG TABLET (UD) PO SCH (22:47)
[2019-04-17] MEDS: LORazepam 0.5 MG TABLET PO PRN (22:47)
[2019-04-17] MEDS: BUPROPION 100 MG PO SCH (22:48)
[2019-04-17] MEDS: LIDOCAINE PATCH REMOVAL MC SCH (22:49)
[2019-04-18] MEDS: SODIUM CHLORIDE 1,000 ML IV SCH (06:42)
[2019-04-18] MEDS: HEPARIN NA (PORCINE) 5,000 UNITS/ML 1ML VIAL SQ SCH ×3 (06:42→21:17)
[2019-04-18] MEDS ORDERED: PAROXETINE 12.5 MG PO SCH (07:00)
[2019-04-18] MEDS ORDERED: PAROXETINE HCL 12.5 MG PO SCH ×2 (07:00→10:00)
[2019-04-18] MEDS ORDERED: PAROXETINE HCL 37.5 MG PO SCH (07:00)
[2019-04-18 08:47] LABS: BLOOD UREA NITROGEN 31.2 mg/dL (7-18); CALCIUM 8.8 mg/dL (8.5-10.1); CREATININE 1.3 mg/dL (0.55-1.3); POTASSIUM 5.1 mmol/L (3.5-5.1)
[2019-04-18] MEDS: LIDOCAINE 5% TOPICAL PATCH TP SCH (09:37)
[2019-04-18] MEDS: CARVEDILOL 25 MG TABLET (FP) PO SCH (09:38)
[2019-04-18] MEDS: PAROXETINE 12.5 MG PO SCH (09:38)
[2019-04-18] MEDS: DIVALPROEX SODIUM 500 MG TABLET E.C. PO SCH ×2 (09:38→21:18)
[2019-04-18] MEDS: MEMANTINE HCL 5 MG TABLET (UD) PO SCH ×2 (09:38→21:17)
[2019-04-18] MEDS: PAROXETINE 37.5 MG PO SCH (09:39)
[2019-04-18] MEDS ORDERED: PARoxetine HCL 10 MG TABLET PO SCH (10:00)
[2019-04-18] MEDS ORDERED: FLU VACCINE QUAD 60 MCG/0.5 ML (MDV 19-20) IM ONE (10:00)
[2019-04-18] MEDS ORDERED: [UNRECOGNIZED DRUG - OTHER] PO SCH (10:00)
[2019-04-18] MEDS ORDERED: PNEUMOC 13-VAL CONJ-DIP CRM/PF 0.5 ML DISP.SYRIN IM ONE (10:00)
[2019-04-18] MEDS ORDERED: ENOXAPARIN NA (PORCINE) 40 MG/0.4 ML DISP.SYRIN SQ SCH (10:00)
--- NOTE | 2019-04-18 11:43 | EKG ---
Test Reason : Blood Pressure : / mmHG Vent. Rate : 064 BPM Atrial Rate : 064 BPM P-R Int : 144 ms QRS Dur : 082 ms QT Int : 402 ms P-R-T Axes : 048 035 036 degrees QTc Int : 414 ms NORMAL SINUS RHYTHM WHEN COMPARED WITH ECG OF 20-NOV-2018 17:09, NO SIGNIFICANT CHANGE WAS FOUND POOR DATA QUALITY, INTERPRETATION MAY BE ADVERSELY AFFECTED Confirmed by FIDEL CEBALLOS MD ([id number]) on 04/18/2019 11:43:00 AM Referred By: Confirmed By:FIDEL CEBALLOS MD
--- NOTE | 2019-04-18 12:33 | PN ---
Progress Note (short form) - Note Progress Note: Subjective: no fever or chills. no GARCIA , L knee pain continues. Not able to ambulate Objective: Vital Signs: Last Vital Signs Temp Pulse Resp BP Pulse Ox 98.4 F 70 18 135/57 L 99 04/18/19 09:10 04/18/19 09:10 04/18/19 09:10 04/18/19 09:10 04/17/19 21:00 Laboratory Results - last 24 hr 04/17/19 04/17/19 04/17/19 13:24 14:14 14:14 WBC 7.6 RBC 3.79 Hgb 10.8 Hct 33.2 MCV 87.6 MCH 28.6 MCHC 32.6 RDW 13.6 Plt Count 259 MPV 8.0 Absolute Neuts (auto) 3.8 Neutrophils % 50.0 Lymphocytes % 37.4 Monocytes % 10.3 H Eosinophils % 1.6 Basophils % 0.7 Nucleated RBC % 0 Sodium 142 Potassium 5.6 H Chloride 111 H Carbon Dioxide 24 Anion Gap 7 L BUN 30.3 H Creatinine 1.7 H Est GFR (CKD-EPI)AfAm 35.05 Est GFR (CKD-EPI)NonAf 30.24 Random Glucose 144 H Calcium 9.1 Total Bilirubin 0.2 AST 14 L ALT 12 L Alkaline Phosphatase 95 Total Protein 6.1 L Albumin 3.1 L Urine Color Yellow Urine Appearance Clear Urine pH 5.0 Ur Specific [place] 1.013 Urine Protein Negative Urine Glucose (UA) Negative Urine Ketones Negative Urine Blood Negative Urine Nitrite Negative Urine Bilirubin Negative Urine Urobilinogen 0.2 Ur Leukocyte Esterase Negative 04/17/19 04/18/19 20:04 06:58 WBC RBC Hgb Hct MCV MCH MCHC RDW Plt Count MPV Absolute Neuts (auto) Neutrophils % Lymphocytes % Monocytes % Eosinophils % Basophils % Nucleated RBC % Sodium 141 142 Potassium 4.9 5.1 Chloride 110 H 111 H Carbon Dioxide 24 23 Anion Gap 7 L 8 BUN 32.8 H 31.2 H Creatinine 1.7 H 1.3 Est GFR (CKD-EPI)AfAm 35.05 48.47 Est GFR (CKD-EPI)NonAf 30.24 41.82 Random Glucose 148 H 93 Calcium 8.6 8.8 Total Bilirubin AST ALT Alkaline Phosphatase Total Protein Albumin Urine Color Urine Appearance Urine pH Ur Specific [place] Urine Protein Urine Glucose (UA) Urine Ketones Urine Blood Urine Nitrite Urine Bilirubin Urine Urobilinogen Ur Leukocyte Esterase Physical Exam: NAD, awake, alert, oriented x3 . HEENt:MMM CV: RRR, 3/6 SM all over the precordium, but best heard at apex. with no radiation to axilla or carotids Lungs: CTAB Abd: soft, obese, NT, ND, NL BS. Ext: No edema or erythema. L knee effusion ( very small and minimal). No erythema. slowly bends the knee to 30 degrees. DO , PT 2+ b/l. ASSESSMENT AND PLAN: 68 y/o woman with h/o HTN, Bipolar disease, OA in L knee , GI bleed 2/2 gastric ulcers from NSAIDS use, HLP, and other medical problems who presented with L knee pain after a fall 1- L knee pain after a fall: likely worsening OA with small effusion. - lidocaine patch - tylenol PRN - will obtain MRI of the knee to evaluate ligaments and cartilage 2- Mechanical falls. - need PT - f/u with neuro as out pt to evaluate for movement disorder 3- CKD:patient tells me she has CKD and follows with a construction ironworker - dc IVF . cr is stable - will not resume losartan due to hyperkalemia 4- Hyperkalemia: due to ARb with CKD - hold ARB , and will not resume after dc 5- h/o Bipolar: cont psych meds . Dispo: HLOC . Pending w/u and PT eval . might need Rehab Visit type - Emergency Visit Emergency Visit: Yes ED Registration Date: 04/17/19 Care time: The patient presented to the Emergency Department on the above date and was hospitalized for further evaluation of their emergent condition. - New Patient This patient is new to me today: No - Critical Care Critical Care patient: No
[2019-04-18] MEDS: ATORVASTATIN CA 10 MG TABLET (FP) PO SCH (21:17)
[2019-04-18] MEDS: BUPROPION 100 MG PO SCH (21:19)
[2019-04-18] MEDS: LIDOCAINE PATCH REMOVAL MC SCH (22:00)
[2019-04-18] MEDS ORDERED: PT OWN MED DRAWER 7, Y5N ONE (23:50)
[2019-04-19] MEDS: HEPARIN NA (PORCINE) 5,000 UNITS/ML 1ML VIAL SQ SCH ×3 (05:43→21:39)
[2019-04-19 08:04] LABS: BLOOD UREA NITROGEN 25.1 mg/dL (7-18); CALCIUM 9.1 mg/dL (8.5-10.1); CREATININE 1.3 mg/dL (0.55-1.3); POTASSIUM 5.3 mmol/L (3.5-5.1)
--- NOTE | 2019-04-19 08:45 | PN ---
Teaching Attending Note Name of Resident: Romeo Lee ATTENDING PHYSICIAN STATEMENT I saw and evaluated the patient. I reviewed the resident's note and discussed the case with the resident. I agree with the resident's findings and plan as documented. SUBJECTIVE: Pain in L knee. NO SOB , or palpitations , or CP or SOB. was not able to walk with out help OBJECTIVE: NAD, awake, alert, oriented x3 . MMM CV: RRR, 3/6 SM all over the precordium, but best heard at apex. with no radiation to axilla or carotids Lungs: CTAB Abd: soft, obese, NT, ND, NL BS. Ext: No edema or erythema. small L knee effusion. No erythema. limited flexion of L knee ASSESSMENT AND PLAN: 68 y/o woman with h/o HTN, Bipolar disease, OA in L knee , GI bleed 2/2 gastric ulcers from NSAIDS use, HLP, and other medical problems who presented with L knee pain after a fall 1- L knee pain after a fall: likely worsening OA with small effusion. - Cont lidocaine patch - Cont tylenol PRN - MRI of the knee pending 2- Mechanical falls. - need PT - f/u with neuro as out pt to evaluate for movement disorder 3- H/o CKD: - will not resume losartan due to hyperkalemia 4- Hyperkalemia: due to ARb with CKD - hold ARB , and will not resume after dc 5- HTN: will start norvasc instead of losartan 6- h/o Bipolar: cont psych meds . Dispo: HLOC . Pending w/u and PT eval . might need Rehab
[2019-04-19] MEDS ORDERED: PT OWN MED DRAWER 7, Y5N ONE (09:45)
[2019-04-19] MEDS: DIVALPROEX SODIUM 500 MG TABLET E.C. PO SCH ×2 (10:26→21:39)
[2019-04-19] MEDS: LIDOCAINE 5% TOPICAL PATCH TP SCH (10:26)
[2019-04-19] MEDS: CARVEDILOL 25 MG TABLET (FP) PO SCH (10:26)
[2019-04-19] MEDS: MEMANTINE HCL 5 MG TABLET (UD) PO SCH ×2 (10:26→21:39)
[2019-04-19] MEDS: PAROXETINE 12.5 MG PO SCH (10:27)
[2019-04-19] MEDS: PAROXETINE 37.5 MG PO SCH (10:27)
[2019-04-19] MEDS ORDERED: ACETAMINOPHEN 325 MG TABLET (FP) PO PRN (11:00)
--- NOTE | 2019-04-19 11:05 | PN ---
Physical Exam: SUBJECTIVE: Patient seen and examined. Pt endorsed Left knee pain. no fevers or shortness of breath OBJECTIVE: Vital Signs Period Temp Pulse Resp BP Sys/Sullivan Pulse Ox Last 24 Hr 98.5 F-98.8 F 66-73 18-20 139-152/62-76 99 GENERAL: The patient is awake, alert, and fully oriented, in mild distress. HEAD: Normal with no signs of trauma. EYES: PERRL, extraocular movements intact, sclera anicteric, conjunctiva clear. No ptosis. ENT: oropharynx clear without exudates, moist mucous membranes. LUNGS: Breath sounds equal, clear to auscultation bilaterally, no wheezes, no crackles, no accessory muscle use. HEART: RRR, 3/6 SM all over the precordium, but best heard at apex. with no radiation to axilla or carotids ABDOMEN: Soft, nontender, nondistended, normoactive bowel sounds, no guarding, no rebound, no hepatosplenomegaly, no masses. EXTREMITIES: 2+ pulses, warm, well-perfused, no edema. Left knee effusion NEUROLOGICAL: Cranial nerves II through XII grossly intact. Normal speech, gait not observed. PSYCH: Normal mood, normal affect. Laboratory Results - last 24 hr 04/19/19 06:30 Sodium 145 Potassium 5.3 H Chloride 111 H Carbon Dioxide 26 Anion Gap 8 BUN 25.1 H Creatinine 1.3 Est GFR (CKD-EPI)AfAm 48.47 Est GFR (CKD-EPI)NonAf 41.82 Random Glucose 94 Calcium 9.1 Active Medications Generic Name Dose Route Start Last Admin Trade Name Freq PRN Reason Stop Dose Admin Acetaminophen 650 mg 04/19/19 11:00 Tylenol - PO Q4H PRN PAIN LEVEL 4 - 6 Atorvastatin Calcium 10 mg 04/17/19 22:00 04/18/19 21:17 Lipitor - PO 10 mg HS MARIA C Administration Carvedilol 25 mg 04/18/19 10:00 04/19/19 10:26 Coreg - PO 25 mg DAILY MARIA C Administration Divalproex Sodium 500 mg 04/17/19 22:00 04/19/19 10:26 Depakote - PO 500 mg BID MARIA C Administration Heparin Sodium (Porcine) 5,000 unit 04/17/19 15:45 04/19/19 05:43 Heparin - SQ 5,000 unit TID MARIA C Administration Lidocaine 1 patch 04/17/19 17:45 04/19/19 10:26 Lidoderm Patch - TP 1 patch DAILY MARIA C Administration Lorazepam 0.5 mg 04/17/19 14:39 04/17/19 22:47 Ativan - PO 0.5 mg HS PRN Administration ANXIETY Memantine 5 mg 04/17/19 22:00 04/19/19 10:26 Namenda - PO 5 mg BID MARIA C Administration Miscellaneous 1 each 04/17/19 22:00 04/18/19 22:00 Lidoderm Patch Removal MC 1 each DAILY@2200 MARIA C Administration Bupropion Sr 100 Mg 1 each 04/17/19 22:00 04/18/19 21:19 Patient's Own PO 1 each Medication (Non- HS MARIA C Administration Formulary) (Paroxetine Er 12. 1 each 04/18/19 10:00 04/19/19 10:27 5mg Tab) Patient's PO 1 each Own Medication (Non- DAILY MARIA C Administration Formulary) (Paroxetine Er 37. 1 each 04/18/19 10:00 04/19/19 10:27 5mg Tab) Patient's PO 1 each Own Medication (Non- DAILY MARIA C Administration Formulary) ASSESSMENT/PLAN: 68 y/o woman with h/o HTN, Bipolar disease, OA in L knee , GI bleed 2/2 gastric ulcers from NSAIDS use, HLP, and other medical problems who presented with L knee pain after a fall L knee pain after a fall: likely worsening OA with small effusion. cont lidocaine patch tylenol 650 PRN Q4h MRI of the knee ordered. Mechanical falls. PT saw pt/ pt ambulate 20ft with unsteadiness. gait abnormal poss shuffling f/u with neuro as out pt to evaluate for movement disorder Dispo for rehab as pt is high risk for fall CKD cr is stable 1.3 PO fluid intake losartan held due to hyperkalemia Hyperkalemia due to ARb with CKD cont hold ARB , will not resume after dc repeat Potassium pending at 2 pm today Bipolar cont psych meds DVT hep subQ Visit type - Emergency Visit Emergency Visit: Yes ED Registration Date: 04/17/19 Care time: The patient presented to the Emergency Department on the above date and was hospitalized for further evaluation of their emergent condition. - New Patient This patient is new to me today: Yes Date on this admission: 04/19/19 - Critical Care Critical Care patient: No - Discharge Referral Referred to [facility] Med [facility] No ATTENDING PHYSICIAN STATEMENT I saw and evaluated the patient. I reviewed the resident's note and discussed the case with the resident. I agree with the resident's findings and plan as documented. SUBJECTIVE: OBJECTIVE: ASSESSMENT AND PLAN:
[2019-04-19] MEDS: amLODIPine BESYLATE 5 MG TABLET (FP) PO SCH (17:06)
[2019-04-19] MEDS: ATORVASTATIN CA 10 MG TABLET (FP) PO SCH (21:39)
[2019-04-19] MEDS: LIDOCAINE PATCH REMOVAL MC SCH (21:39)
[2019-04-19] MEDS: BUPROPION 100 MG PO SCH (21:40)
[2019-04-19] MEDS: LORazepam 0.5 MG TABLET PO PRN (21:45)
[2019-04-20] MEDS ORDERED: SODIUM POLYSTYRENE SULFONATE 15 GM/60 ML BOTTLE PO ONE (00:19)
[2019-04-20] MEDS: HEPARIN NA (PORCINE) 5,000 UNITS/ML 1ML VIAL SQ SCH ×3 (06:38→22:32)
[2019-04-20 08:23] LABS: BASO % 0.7 % (0-2.0); EOS % 2.4 % (0-4.5); HEMATOCRIT 32.4 % (32.4-45.2); HEMOGLOBIN 10.7 GM/dL (10.7-15.3); LYMPH % 27.7 % (8-40); MCH 28.8 pg (25.7-33.7); MCHC 32.9 g/dl (32.0-36.0); MEAN CELL VOLUME 87.6 fl (80-96); MONO % 10.9 % (3.8-10.2); NEUT % 58.3 % (42.8-82.8); PLATELET COUNT 259 K/MM3 (134-434); RDW 13.8 % (11.6-15.6)
[2019-04-20 09:00] LABS: BLOOD UREA NITROGEN 24.5 mg/dL (7-18); CREATININE 1.3 mg/dL (0.55-1.3); POTASSIUM 5.1 mmol/L (3.5-5.1)
[2019-04-20] MEDS: DIVALPROEX SODIUM 500 MG TABLET E.C. PO SCH ×2 (10:39→22:32)
[2019-04-20] MEDS: amLODIPine BESYLATE 5 MG TABLET (FP) PO SCH (10:39)
[2019-04-20] MEDS: CARVEDILOL 25 MG TABLET (FP) PO SCH (10:39)
[2019-04-20] MEDS: MEMANTINE HCL 5 MG TABLET (UD) PO SCH ×2 (10:39→22:32)
[2019-04-20] MEDS: LIDOCAINE 5% TOPICAL PATCH TP SCH (10:39)
[2019-04-20] MEDS: PAROXETINE 37.5 MG PO SCH (10:45)
[2019-04-20] MEDS: PAROXETINE 12.5 MG PO SCH (10:45)
[2019-04-20] MEDS ORDERED: PT OWN MED DRAWER 7, Y5N ONE ×2 (11:37→22:25)
--- NOTE | 2019-04-20 13:12 | PN ---
Physical Exam: SUBJECTIVE: Patient seen and examined. Pt was given ativan for her anxiety. Kayexalate for hyperkalemia overnight OBJECTIVE: Vital Signs Period Temp Pulse Resp BP Sys/Sullivan Pulse Ox Last 24 Hr 98 F-98.9 F 63-68 20-20 112-142/52-75 98 GENERAL: The patient is awake, alert, and fully oriented, in no distress distress. HEAD: Normal with no signs of trauma. EYES: PERRL, extraocular movements intact, sclera anicteric, conjunctiva clear. No ptosis. ENT: oropharynx clear without exudates, moist mucous membranes. LUNGS: Breath sounds equal, clear to auscultation bilaterally, no wheezes, no crackles, no accessory muscle use. HEART: RRR, 3/6 SM all over the precordium, but best heard at apex. with no radiation to axilla or carotids ABDOMEN: Soft, nontender, nondistended, normoactive bowel sounds, no guarding, no rebound, no hepatosplenomegaly, no masses. EXTREMITIES: 2+ pulses, warm, well-perfused, no edema. Left knee effusion NEUROLOGICAL: Cranial nerves II through XII grossly intact. Normal speech, gait not observed. PSYCH: Normal mood, normal affect. Laboratory Results - last 24 hr 04/19/19 04/20/19 04/20/19 13:49 06:43 06:43 WBC 9.0 RBC 3.70 Hgb 10.7 Hct 32.4 MCV 87.6 MCH 28.8 MCHC 32.9 RDW 13.8 Plt Count 259 MPV 8.0 Absolute Neuts (auto) 5.2 Neutrophils % 58.3 Lymphocytes % 27.7 D Monocytes % 10.9 H Eosinophils % 2.4 Basophils % 0.7 Nucleated RBC % 0 Sodium 143 Potassium 5.4 H 5.1 Chloride 110 H Carbon Dioxide 25 Anion Gap 9 BUN 24.5 H Creatinine 1.3 Est GFR (CKD-EPI)AfAm 48.47 Est GFR (CKD-EPI)NonAf 41.82 Random Glucose 116 H Calcium 9.0 Active Medications Generic Name Dose Route Start Last Admin Trade Name Freq PRN Reason Stop Dose Admin Acetaminophen 650 mg 04/19/19 11:00 04/19/19 12:04 Tylenol - PO 650 mg Q4H PRN Administration PAIN LEVEL 4 - 6 Amlodipine Besylate 5 mg 04/19/19 15:45 04/20/19 10:39 Norvasc - PO 5 mg DAILY MARIA C Administration Atorvastatin Calcium 10 mg 04/17/19 22:00 04/19/19 21:39 Lipitor - PO 10 mg HS MARIA C Administration Carvedilol 25 mg 04/18/19 10:00 04/20/19 10:39 Coreg - PO 25 mg DAILY MARIA C Administration Divalproex Sodium 500 mg 04/17/19 22:00 04/20/19 10:39 Depakote - PO 500 mg BID MARIA C Administration Heparin Sodium (Porcine) 5,000 unit 04/17/19 15:45 04/20/19 06:38 Heparin - SQ 5,000 unit TID MARAI C Administration Lidocaine 1 patch 04/17/19 17:45 04/20/19 10:39 Lidoderm Patch - TP 1 patch DAILY MARIA C Administration Lorazepam 0.5 mg 04/17/19 14:39 04/19/19 21:45 Ativan - PO 0.5 mg HS PRN Administration ANXIETY Memantine 5 mg 04/17/19 22:00 04/20/19 10:39 Namenda - PO 5 mg BID MARIA C Administration Miscellaneous 1 each 04/17/19 22:00 04/19/19 21:39 Lidoderm Patch Removal MC 1 each DAILY@2200 MARIA C Administration Bupropion Sr 100 Mg 1 each 04/17/19 22:00 04/19/19 21:40 Patient's Own PO 1 each Medication (Non- HS MARIA C Administration Formulary) (Paroxetine Er 12. 1 each 04/18/19 10:00 04/20/19 10:45 5mg Tab) Patient's PO 1 each Own Medication (Non- DAILY MARIA C Administration Formulary) (Paroxetine Er 37. 1 each 04/18/19 10:00 04/20/19 10:45 5mg Tab) Patient's PO 1 each Own Medication (Non- DAILY MARIA C Administration Formulary) ASSESSMENT/PLAN: 68 y/o woman with h/o HTN, Bipolar disease, OA in L knee , GI bleed 2/2 gastric ulcers from NSAIDS use, HLP, and other medical problems who presented with L knee pain after a fall L knee pain after a fall: likely worsening OA with small effusion. left knee swelling improved. less stiffness and pain in the knee cont lidocaine patch tylenol [address] showed mod severe degenerative arthritis with Effusion with no signs of fracture pending rehad approval Mechanical falls. PT saw pt/ pt ambulate 20ft with unsteadiness. gait abnormal poss shuffling f/u with neuro as out pt to evaluate for movement disorder Dispo for rehab as pt is high risk for fall HTN norvasc 5mg PO CKD cr is stable PO fluid intake losartan D/C 2/2 hyperkalemia Hyperkalemia due to ARb with CKD cont hold ARB , will not resume after dc monitor BMP Bipolar cont psych meds DVT hep subQ Visit type - Emergency Visit Emergency Visit: Yes ED Registration Date: 04/17/19 Care time: The patient presented to the Emergency Department on the above date and was hospitalized for further evaluation of their emergent condition. - New Patient This patient is new to me today: No - Critical Care Critical Care patient: No - Discharge Referral Referred to [facility] Med P.C.: No ATTENDING PHYSICIAN STATEMENT I saw and evaluated the patient. I reviewed the resident's note and discussed the case with the resident. I agree with the resident's findings and plan as documented. SUBJECTIVE: OBJECTIVE: ASSESSMENT AND PLAN:
--- NOTE | 2019-04-20 16:19 | PN ---
Teaching Attending Note Name of Resident: Josefa Mi ATTENDING PHYSICIAN STATEMENT I saw and evaluated the patient. I reviewed the resident's note and discussed the case with the resident. I agree with the resident's findings and plan as documented. SUBJECTIVE: Patient is comfortable but having difficulty with ambulation. OBJECTIVE: Vital Signs Temperature 99.3 F 04/20/19 14:00 Pulse Rate 67 04/20/19 14:00 Respiratory Rate 20 04/20/19 14:00 Blood Pressure 116/51 L 04/20/19 14:00 O2 Sat by Pulse Oximetry (%) 98 04/19/19 21:00 GENERAL: The patient is awake, alert, and fully oriented, in no acute distress. HEAD: Normal with no signs of trauma. EYES: PERRL, extraocular movements intact, sclera anicteric, conjunctiva clear. ENT: Ears normal, oropharynx clear without exudates, moist mucous membranes. NECK: Trachea midline, full range of motion, supple. LUNGS: Breath sounds equal, clear to auscultation bilaterally, no wheezes, no crackles, no accessory muscle use. HEART: Regular rate and rhythm, S1, S2 positive, jaida 2/6,no rub or gallop. ABDOMEN: Soft, NT,ND, normoactive bowel sounds, no guarding, no rebound, no hepatosplenomegaly, no masses. EXTREMITIES: 2+ pulses, warm, well-perfused, no edema, difficulty with raising her left lower extremities NEUROLOGICAL: Cranial nerves II through XII grossly intact. Normal speech, gait not observed. PSYCH: Normal mood, normal affect. SKIN: Warm, dry, normal turgor, no rashes or lesions noted CBCD WBC 9.0 K/mm3 (4.0-10.0) 04/20/19 06:43 RBC 3.70 M/mm3 (3.60-5.2) 04/20/19 06:43 Hgb 10.7 GM/dL (10.7-15.3) 04/20/19 06:43 Hct 32.4 % (32.4-45.2) 04/20/19 06:43 MCV 87.6 fl (80-96) 04/20/19 06:43 MCHC 32.9 g/dl (32.0-36.0) 04/20/19 06:43 RDW 13.8 % (11.6-15.6) 04/20/19 06:43 Plt Count 259 K/MM3 (134-434) 04/20/19 06:43 MPV 8.0 fl (7.5-11.1) 04/20/19 06:43 CMP Sodium 143 mmol/L (136-145) 04/20/19 06:43 Potassium 5.1 mmol/L (3.5-5.1) 04/20/19 06:43 Chloride 110 mmol/L (98-107) H 04/20/19 06:43 Carbon Dioxide 25 mmol/L (21-32) 04/20/19 06:43 Anion Gap 9 MMOL/L (8-16) 04/20/19 06:43 BUN 24.5 mg/dL (7-18) H 04/20/19 06:43 Creatinine 1.3 mg/dL (0.55-1.3) 04/20/19 06:43 Random Glucose 116 mg/dL (74-106) H 04/20/19 06:43 Calcium 9.0 mg/dL (8.5-10.1) 04/20/19 06:43 Total Bilirubin 0.2 mg/dL (0.2-1) 04/17/19 14:14 AST 14 U/L (15-37) L 04/17/19 14:14 ALT 12 U/L (13-61) L 04/17/19 14:14 Alkaline Phosphatase 95 U/L (45-117) 04/17/19 14:14 Total Protein 6.1 g/dl (6.4-8.2) L 04/17/19 14:14 Albumin 3.1 g/dl (3.4-5.0) L 04/17/19 14:14 Current Medications Generic Name Dose Route Start Last Admin Trade Name Freq PRN Reason Stop Dose Admin Acetaminophen 650 mg 04/19/19 11:00 04/19/19 12:04 Tylenol - PO 650 mg Q4H PRN Administration PAIN LEVEL 4 - 6 Amlodipine Besylate 5 mg 04/19/19 15:45 04/20/19 10:39 Norvasc - PO 5 mg DAILY MARIA C Administration Atorvastatin Calcium 10 mg 04/17/19 22:00 04/19/19 21:39 Lipitor - PO 10 mg HS MARIA C Administration Carvedilol 25 mg 04/18/19 10:00 04/20/19 10:39 Coreg - PO 25 mg DAILY MARIA C Administration Divalproex Sodium 500 mg 04/17/19 22:00 04/20/19 10:39 Depakote - PO 500 mg BID MARIA C Administration Heparin Sodium (Porcine) 5,000 unit 04/17/19 15:45 04/20/19 15:00 Heparin - SQ 5,000 unit TID MARIA C Administration Lidocaine 1 patch 04/17/19 17:45 04/20/19 10:39 Lidoderm Patch - TP 1 patch DAILY MARIA C Administration Memantine 5 mg 04/17/19 22:00 04/20/19 10:39 Namenda - PO 5 mg BID MARIA C Administration Miscellaneous 1 each 04/17/19 22:00 04/19/19 21:39 Lidoderm Patch Removal MC 1 each DAILY@2200 MARIA C Administration Bupropion Sr 100 Mg 1 each 04/17/19 22:00 04/19/19 21:40 Patient's Own PO 1 each Medication (Non- HS MARIA C Administration Formulary) (Paroxetine Er 12. 1 each 04/18/19 10:00 04/20/19 10:45 5mg Tab) Patient's PO 1 each Own Medication (Non- DAILY MARIA C Administration Formulary) (Paroxetine Er 37. 1 each 04/18/19 10:00 04/20/19 10:45 5mg Tab) Patient's PO 1 each Own Medication (Non- DAILY MARIA C Administration Formulary) Home Medications Medication Instructions Recorded Atorvastatin Ca [Lipitor] 10 mg PO HS 11/20/18 Carvedilol [Coreg -] 25 mg PO DAILY 11/20/18 Divalproex Sodium [Depakote ER] 500 mg PO BID 11/20/18 Lorazepam [Ativan] 0.5 mg PO QID PRN 11/20/18 Memantine HCl 5 mg PO BID 11/20/18 Paroxetine HCl [Paxil Cr] 12.5 mg PO DAILY 11/20/18 Bupropion HCl [Bupropion HCl Sr] 100 mg PO HS 04/17/19 Paroxetine HCl [Paxil Cr] 37.5 mg PO AM 04/17/19 l-Mefol/A-Cyst/Meb12/Algal Oil 1 each PO DAILY 04/17/19 [Cerefolin Nac Caplet] ASSESSMENT AND PLAN: Patient is 68y/o woman with h/o HTN, Bipolar disease, OA in L knee , GI bleed due to having gastric ulcers from NSAIDS use, HLP, who presented with L knee pain after a fall # L knee pain after a fall with worsening OA with small effusion. continue lidocaine patch, cont tylenol PRN, MRI of the knee pending # s/p Mechanical falls. PT on board f/u with neuro as out pt to evaluate for movement disorder # H/o CKD: will discontinue losartan due to hyperkalemia # Hyperkalemia: due to ARb with CKD , discontinue ARB # HTN: will start norvasc instead of losartan # h/o Bipolar: cont psych meds . Pending rehab authorization , PT diogo. Sariah on the case. As per PT therapist: Pt tolerated PT without any complaints but weakness and being unsteady. Pt p/w weak B/L UE and LE, limited left knee ROM d/t pain, fair safety awareness. Pt also noted to have resting tremors (chronic as per pt and from medication). Pt falls frequently, unsafe to send her home, will benefit from PT in rehab, which will improve current level of function.
[2019-04-20] MEDS ORDERED: LORazepam 0.5 MG TABLET PO ONE (21:02)
[2019-04-20] MEDS: LIDOCAINE PATCH REMOVAL MC SCH (22:32)
[2019-04-20] MEDS: ATORVASTATIN CA 10 MG TABLET (FP) PO SCH (22:32)
[2019-04-20] MEDS: BUPROPION 100 MG PO SCH (22:33)
[2019-04-21] MEDS ORDERED: LORazepam 0.5 MG TABLET PO PRN (07:05)
[2019-04-21] MEDS: HEPARIN NA (PORCINE) 5,000 UNITS/ML 1ML VIAL SQ SCH ×2 (07:17→15:15)
[2019-04-21 08:46] LABS: BLOOD UREA NITROGEN 25.1 mg/dL (7-18); CALCIUM 8.9 mg/dL (8.5-10.1); CREATININE 1.3 mg/dL (0.55-1.3)
[2019-04-21] MEDS: amLODIPine BESYLATE 5 MG TABLET (FP) PO SCH (12:31)
[2019-04-21] MEDS: MEMANTINE HCL 5 MG TABLET (UD) PO SCH (12:32)
[2019-04-21] MEDS: CARVEDILOL 25 MG TABLET (FP) PO SCH (12:32)
[2019-04-21] MEDS: LIDOCAINE 5% TOPICAL PATCH TP SCH (12:32)
[2019-04-21] MEDS: DIVALPROEX SODIUM 500 MG TABLET E.C. PO SCH (12:32)
[2019-04-21] MEDS: PAROXETINE 12.5 MG PO SCH (12:33)
[2019-04-21] MEDS: PAROXETINE 37.5 MG PO SCH (12:33)
[2019-04-21] MEDS ORDERED: PT OWN MED DRAWER 7, Y5N ONE (15:50)
[2019-04-21 15:54] VITALS: BP 120/86; PULSE 68; TEMP 97.9
--- NOTE | 2019-04-21 16:55 | DS ---
Physical Exam: SUBJECTIVE: Patient seen and examined. Pt endorsed less pain in the left knee. OBJECTIVE: Vital Signs Period Temp Pulse Resp BP Sys/Sullivan Pulse Ox Last 24 Hr 97.4 F-99.3 F 68-76 20-20 116-154/46-86 95 PHYSICAL EXAM GENERAL: The patient is awake, alert, and fully oriented, in no distress distress. HEAD: Normal with no signs of trauma. EYES: PERRL, extraocular movements intact, sclera anicteric, conjunctiva clear. No ptosis. ENT: oropharynx clear without exudates, moist mucous membranes. LUNGS: Breath sounds equal, clear to auscultation bilaterally, no wheezes, no crackles, no accessory muscle use. HEART: RRR, 3/6 SM all over the precordium, but best heard at apex. with no radiation to axilla or carotids ABDOMEN: Soft, nontender, nondistended, normoactive bowel sounds, no guarding, no rebound, no hepatosplenomegaly, no masses. EXTREMITIES: 2+ pulses, warm, well-perfused, no edema. Left knee effusion PSYCH: Normal mood, normal affect. LABS Laboratory Results - last 24 hr 04/21/19 06:45 Sodium 142 Potassium 5.0 Chloride 109 H Carbon Dioxide 26 Anion Gap 8 BUN 25.1 H Creatinine 1.3 Est GFR (CKD-EPI)AfAm 48.47 Est GFR (CKD-EPI)NonAf 41.82 Random Glucose [address] scan of the cervical spine without intravenous contrast Coronal and sagittal reconstruction images were obtained. There is a mild reversal of the cervical spine curvature. No gross fracture, subluxation or prevertebral soft tissue swelling is seen. No jumped facets are identified. Moderate to marked left facet hypertrophy at L3-L4 level Moderate bilateral facet hypertrophy at L4-L5 level, right more than left. C5-C6 moderate degenerative disc disease with anterior spur formation and mild bilateral uncovertebral hypertrophy. C6-C7 moderate degenerative disc disease with minimal disc bulge and anterior spur formation. C7-T1 mild degenerative disc disease with anterior spur formation. Visualized portion of the airway appears unremarkable. No gross enlarged lymph nodes are identified. Lung windows at the thoracic inlet appear unremarkable except for a tiny pleural-based nodule in the right upper lobe, posterior lateral measuring 2 mm which is nonspecific. HOSPITAL COURSE: Date of Admission:10/05/19 68 y/o woman with h/o HTN, Bipolar disease, OA in L knee , GI bleed 2/2 gastric ulcers from NSAIDS use, HLP, and other medical problems who presented with L knee pain after a fall. pt found to suffer from advanced OA.Knee XR showed arthritic changes w/ joint effusion.XR R hip showed no abnormalities. CT showed mod severe degenerative arthritis with Effusion with no signs of fracture. Pt saw pt and recommended rehab as patient was found to have abnormal gait and imbalance which increased her risk of recurrent falls. pt advised to f/ u with neuro as out pt to evaluate for movement disorder. Pt has a hx of CKD; hyperkalemic during admission so we D/C'ed her Losartan and discharged her with norvasc 5mg daily for blood pressure control. Pt discharged to [facility] for rehabilitation. Date of Discharge: 04/21/19 Minutes to complete discharge: 35 Discharge Summary Problems reviewed: Yes Reason For Visit: INABILITY TO AMBULATE DUE TO LEFT KNEE Condition: Stable - Instructions Diet, Activity, Other Instructions: You came into the Ed because of left knee pain after a fall. We took scans of your knee which showed severe degenerative disease and small amount of fluid in your knee but no fracture. We treated your pain and your symptoms improved. Because of your imbalance and recurrent fall on ambulation, we are discharging you at the alf facility to help you improve your strength and balance. We noticed some abnormality in the way you walk; please follow up with neurology for further evaluation. Medications: Please resume your home medications. We have made some changes to your medications: please DO NOT RESUME LOSARTAN as it can further increase your potassium level. Please take norvasc 5 mg by mouth daily instead. Follow up: Please follow up with your primary care physician Dr Stanley within one week. Please follow up with Neurology Dr Champion within one week. If you begin to experience worsening knee pain, tenderness, redness, swelling, fever, chills, chest pain and shortness of breath please return to the Emergency Room immediately. Referrals: Loy Champion MD [Staff Physician] - 1 Week Nataliya Stanley MD [Primary Care Provider] - 1 Week Disposition: [facility] - Home Medications Comprehensive Discharge Medication List: Ambulatory Orders Atorvastatin Ca [Lipitor] 10 mg PO HS 11/20/18 Carvedilol [Coreg -] 25 mg PO DAILY 11/20/18 Divalproex Sodium [Depakote ER] 500 mg PO BID 11/20/18 Lorazepam [Ativan] 0.5 mg PO QID PRN 11/20/18 Memantine HCl 5 mg PO BID 11/20/18 Paroxetine HCl [Paxil Cr] 12.5 mg PO DAILY 11/20/18 Bupropion HCl [Bupropion HCl Sr] 100 mg PO HS 04/17/19 Paroxetine HCl [Paxil Cr] 37.5 mg PO AM 04/17/19 l-Mefol/A-Cyst/Meb12/Algal Oil [Cerefolin Nac Caplet] 1 each PO DAILY 04/17/19 Amlodipine Besylate [Norvasc -] 5 mg PO DAILY #30 tablet 04/21/19 Problem List - Problems (1) Abnormal laboratory test Code(s): R89.9 - UNSP ABNORMAL FINDING IN SPECIMENS FROM OTH ORG/TISS (2) Need for physical therapy assessment Code(s): Z76.89 - PERSONS ENCOUNTERING HEALTH SERVICES IN OTH CIRCUMSTANCES (3) Repeated falls Code(s): R29.6 - REPEATED FALLS (4) Weakness Code(s): R53.1 - WEAKNESS (5) Weakness of both lower extremities Code(s): M62.81 - MUSCLE WEAKNESS (GENERALIZED) (6) CVA (cerebral infarction) Code(s): I63.9 - CEREBRAL INFARCTION, UNSPECIFIED (7) Fatigue Code(s): R53.83 - OTHER FATIGUE (8) Hypertension Code(s): I10 - ESSENTIAL (PRIMARY) HYPERTENSION (9) Inability to ambulate due to left knee Code(s): R26.2 - DIFFICULTY IN WALKING, NOT ELSEWHERE CLASSIFIED (10) Dehydration Code(s): E86.0 - DEHYDRATION (11) Renal insufficiency Code(s): N28.9 - DISORDER OF KIDNEY AND URETER, UNSPECIFIED (12) Renal insufficiency, mild Code(s): N28.9 - DISORDER OF KIDNEY AND URETER, UNSPECIFIED This patient is new to me today: No Emergency Visit: Yes ED Registration Date: 04/17/19 Care time: The patient presented to the Emergency Department on the above date and was hospitalized for further evaluation of their emergent condition. Critical Care patient: No - Discharge Referral Referred to [facility] Med P.C.: No ATTENDING PHYSICIAN STATEMENT I saw and evaluated the patient. I reviewed the resident's note and discussed the case with the resident. I agree with the resident's findings and plan as documented. SUBJECTIVE: OBJECTIVE: ASSESSMENT AND PLAN:
--- NOTE | 2019-04-21 17:06 | PN ---
Teaching Attending Note Name of Resident: Josefa Mi ATTENDING PHYSICIAN STATEMENT I saw and evaluated the patient. I reviewed the resident's note and discussed the case with the resident. I agree with the resident's findings and plan as documented. SUBJECTIVE: Patient feels better but continues to feel weak on her legs. OBJECTIVE: Vital Signs Temperature 97.9 F 04/21/19 14:00 Pulse Rate 68 04/21/19 14:00 Respiratory Rate 20 04/21/19 14:00 Blood Pressure 120/86 04/21/19 14:00 O2 Sat by Pulse Oximetry (%) 95 04/20/19 21:00 GENERAL: The patient is awake, alert, and fully oriented, in no acute distress. HEAD: Normal with no signs of trauma. EYES: PERRL, extraocular movements intact, sclera anicteric, conjunctiva clear. ENT: Ears normal, oropharynx clear without exudates, moist mucous membranes. NECK: Trachea midline, full range of motion, supple. LUNGS: Breath sounds equal, clear to auscultation bilaterally, no wheezes, no crackles, no accessory muscle use. HEART: Regular rate and rhythm, S1, S2 positive, jaida 2/6,no rub or gallop. ABDOMEN: Soft, NT,ND, normoactive bowel sounds, no guarding, no rebound, no hepatosplenomegaly, no masses. EXTREMITIES: 2+ pulses, warm, well-perfused, no edema, difficulty with raising her left lower extremities due to pain but strength 5/5 NEUROLOGICAL: Cranial nerves II through XII grossly intact. Normal speech, gait not observed. PSYCH: Normal mood, normal affect. SKIN: Warm, dry, normal turgor, no rashes or lesions noted CBCD WBC 9.0 K/mm3 (4.0-10.0) 04/20/19 06:43 RBC 3.70 M/mm3 (3.60-5.2) 04/20/19 06:43 Hgb 10.7 GM/dL (10.7-15.3) 04/20/19 06:43 Hct 32.4 % (32.4-45.2) 04/20/19 06:43 MCV 87.6 fl (80-96) 04/20/19 06:43 MCHC 32.9 g/dl (32.0-36.0) 04/20/19 06:43 RDW 13.8 % (11.6-15.6) 04/20/19 06:43 Plt Count 259 K/MM3 (134-434) 04/20/19 06:43 MPV 8.0 fl (7.5-11.1) 04/20/19 06:43 CMP Sodium 142 mmol/L (136-145) 04/21/19 06:45 Potassium 5.0 mmol/L (3.5-5.1) 04/21/19 06:45 Chloride 109 mmol/L (98-107) H 04/21/19 06:45 Carbon Dioxide 26 mmol/L (21-32) 04/21/19 06:45 Anion Gap 8 MMOL/L (8-16) 04/21/19 06:45 BUN 25.1 mg/dL (7-18) H 04/21/19 06:45 Creatinine 1.3 mg/dL (0.55-1.3) 04/21/19 06:45 Random Glucose 92 mg/dL (74-106) 04/21/19 06:45 Calcium 8.9 mg/dL (8.5-10.1) 04/21/19 06:45 Total Bilirubin 0.2 mg/dL (0.2-1) 04/17/19 14:14 AST 14 U/L (15-37) L 04/17/19 14:14 ALT 12 U/L (13-61) L 04/17/19 14:14 Alkaline Phosphatase 95 U/L (45-117) 04/17/19 14:14 Total Protein 6.1 g/dl (6.4-8.2) L 04/17/19 14:14 Albumin 3.1 g/dl (3.4-5.0) L 04/17/19 14:14 Home Medications Medication Instructions Recorded Atorvastatin Ca [Lipitor] 10 mg PO HS 11/20/18 Carvedilol [Coreg -] 25 mg PO DAILY 11/20/18 Divalproex Sodium [Depakote ER] 500 mg PO BID 11/20/18 Lorazepam [Ativan] 0.5 mg PO QID PRN 11/20/18 Memantine HCl 5 mg PO BID 11/20/18 Paroxetine HCl [Paxil Cr] 12.5 mg PO DAILY 11/20/18 Bupropion HCl [Bupropion HCl Sr] 100 mg PO HS 04/17/19 Paroxetine HCl [Paxil Cr] 37.5 mg PO AM 04/17/19 l-Mefol/A-Cyst/Meb12/Algal Oil 1 each PO DAILY 04/17/19 [Cerefolin Nac Caplet] Amlodipine Besylate [Norvasc -] 5 mg PO DAILY #30 tablet 04/21/19 ASSESSMENT AND PLAN: Patient is 68y/o woman with h/o HTN, Bipolar disease, OA in L knee , GI bleed due to having gastric ulcers from NSAIDS use, HLP, who presented with L knee pain after a fall # L knee pain after a fall with worsening OA with small effusion. continue lidocaine patch, cont tylenol PRN, Ct of the left knee: moderately severe degenerative arthritis with joint effusion.no evidence of fracture or joint abnormality. # s/p Mechanical falls. PT on board :f/u with neuro as out pt to evaluate for movement disorder # H/o CKD: will discontinue losartan due to hyperkalemia # Hyperkalemia: due to ARb with CKD , discontinue ARB # HTN: will start norvasc instead of losartan # h/o Bipolar: cont psych meds . patient is being send to rehab.
== END 2019-04-21 16:30 | DRG 554 ==
LOC: JER 08:19 → JERBED 12:53 → J5S 14:56
PROVIDERS: ADMIT Internal Medicine; ATTEND Internal Medicine
DX: M17.12 Unilateral primary osteoarthritis, left knee (principal); N17.9 Acute kidney failure, unspecified; F31.89 Other bipolar disorder; E78.5 Hyperlipidemia, unspecified; F32.9 Major depressive disorder, single episode, unspecified; E87.5 Hyperkalemia; R51 Headache; M25.462 Effusion, left knee; R29.6 Repeated falls; F41.9 Anxiety disorder, unspecified; I12.9 Hypertensive chronic kidney disease with stage 1 through stage 4 chronic kidney disease, or unspecified chronic kidney disease; N18.9 Chronic kidney disease, unspecified; Z87.11 Personal history of peptic ulcer disease; W01.0XXA Fall on same level from slipping, tripping and stumbling without subsequent striking against object, initial encounter; Y92.098 Other place in other non-institutional residence as the place of occurrence of the external cause
CPT/HCPCS: 36415; 70450-TC; 72125-TC; 73523-TC-FY; 73564-TC-LT-FY; 73700-TC-RT; 80048; 80053; 81003; 84132; 85025; 87086; 90670; 93005; 93010; 97116-GP; 99284-25; J1644; J7030; Q2036

== ENCOUNTER 2019-06-20 22:51 | Inpatient (IN) | payer OTHER ==
[2019-06-20 23:03] VITALS: TEMP 98; BMI 29.6
[2019-06-20 23:40] LABS: BASO % 0.6 % (0-2.0); EOS % 3.4 % (0-4.5); HEMATOCRIT 35.5 % (32.4-45.2); HEMOGLOBIN 11.5 GM/dL (10.7-15.3); MCH 28.3 pg (25.7-33.7); MCHC 32.3 g/dl (32.0-36.0); MEAN CELL VOLUME 87.7 fl (80-96); MONO % 12.3 % (3.8-10.2); NEUT % 42.7 % (42.8-82.8); PLATELET COUNT 251 K/MM3 (134-434); RBC 4.05 M/mm3 (3.60-5.2); RDW 14.4 % (11.6-15.6); WHITE BLOOD COUNT 7.7 K/mm3 (4.0-10.0)
[2019-06-20 23:47] LABS: INR 0.87 (0.83-1.09); PROTHROMBIN TIME (PATIENT) 10.3 SEC (9.7-13.0)
[2019-06-20 23:50] LABS: ACTIVATED PTT 33.8 SECONDS (25.2-36.5)
[2019-06-21 00:05] LABS: ALBUMIN 3.6 g/dl (3.4-5.0); ALK PHOS 107 U/L (45-117); ANION GAP 7 MMOL/L (8-16); BILIRUBIN,TOTAL 0.2 mg/dL (0.2-1); BLOOD UREA NITROGEN 33.7 mg/dL (7-18); CALCIUM 8.8 mg/dL (8.5-10.1); CHLORIDE 112 mmol/L (98-107); CO2 23 mmol/L (21-32); CREATININE 1.5 mg/dL (0.55-1.3); GLUCOSE,RANDOM 103 mg/dL (74-106); POTASSIUM 4.8 mmol/L (3.5-5.1); SGOT/AST 12 U/L (15-37); SGPT/ALT 18 U/L (13-61); SODIUM 142 mmol/L (136-145); TOT PROT 7.3 g/dl (6.4-8.2)
--- NOTE | 2019-06-21 00:10 | PDOC ---
History of Present Illness - General Chief Complaint: Blood Pressure Problem Stated Complaint: HYPERTENSION/SHORTNESS OF BREATH Time Seen by Provider: 06/20/19 23:31 History Source: Patient Exam Limitations: No Limitations Past History - Past Medical History Allergies/Adverse Reactions: Allergies Allergy/AdvReac Type Severity Reaction Status Date / Time No Known Allergies Allergy Verified 04/17/19 08:30 Home Medications: Ambulatory Orders Atorvastatin Ca [Lipitor] 10 mg PO HS 11/20/18 Carvedilol [Coreg -] 25 mg PO DAILY 11/20/18 Divalproex Sodium [Depakote ER] 500 mg PO BID 11/20/18 Lorazepam [Ativan] 0.5 mg PO QID PRN 11/20/18 Memantine HCl 5 mg PO BID 11/20/18 Paroxetine HCl [Paxil Cr] 12.5 mg PO DAILY 11/20/18 Bupropion HCl [Bupropion HCl Sr] 100 mg PO HS 04/17/19 Paroxetine HCl [Paxil Cr] 37.5 mg PO AM 04/17/19 l-Mefol/A-Cyst/Meb12/Algal Oil [Cerefolin Nac Caplet] 1 each PO DAILY 04/17/19 Amlodipine Besylate [Norvasc -] 5 mg PO DAILY #30 tablet 04/21/19 Anemia: Yes Asthma: No Cancer: No Cardiac Disorders: No CVA: No COPD: No CHF: No Dementia: No Diabetes: No GI Disorders: Yes (h/o gi bleed 4mos ago) Disorders: Yes (stress incontinence) HTN: Yes Hypercholesterolemia: Yes Liver Disease: No Psychiatric Problems: Yes (DEPRESSION.) Seizures: No Thyroid Disease: No - Surgical History Abdominal Surgery: Yes Appendectomy: No Cardiac Surgery: No Cholecystectomy: No Lung Surgery: No Neurologic Surgery: No Orthopedic Surgery: No - Immunization History Immunization Up to Date: Yes - Psycho Social/Smoking Cessation Hx Smoking History: Never smoked Have you smoked in the past 12 months: No Hx Alcohol Use: No Drug/Substance Use Hx: No Substance Use Type: None Hx Substance Use Treatment: No *Physical Exam - Vital Signs Last Vital Signs Temp Pulse Resp BP Pulse Ox 98 F 81 16 191/74 H 98 06/20/19 22:58 06/20/19 22:58 06/20/19 22:58 06/20/19 22:58 06/20/19 23:46 ED Treatment Course - LABORATORY CBC & Chemistry Diagram: 06/20/19 23:30 06/20/19 23:30 - ADDITIONAL ORDERS Additional order review: Laboratory Results 06/20/19 06/20/19 23:30 23:30 PT with INR 10.30 INR 0.87 PTT (Actin FS) 33.8 Sodium 142 Potassium 4.8 Chloride 112 H Carbon Dioxide 23 Anion Gap 7 L BUN 33.7 H Creatinine 1.5 H Est GFR (CKD-EPI)AfAm 40.77 Est GFR (CKD-EPI)NonAf 35.18 Random Glucose 103 Calcium 8.8 Total Bilirubin 0.2 AST 12 L ALT 18 Alkaline Phosphatase 107 Creatine Kinase 152 Troponin I < 0.02 Total Protein 7.3 Albumin 3.6 06/20/19 23:30 RBC 4.05 MCV 87.7 MCHC 32.3 RDW 14.4 MPV 8.0 Neutrophils % 42.7 L D Lymphocytes % 41.0 H D Monocytes % 12.3 H Eosinophils % 3.4 Basophils % 0.6 - RADIOLOGY Radiology Studies Ordered: Category Date Time Status CHEST X-RAY PORTABLE* [RAD] Stat Radiology 06/20/19 23:33 Taken
[2019-06-21] MEDS ORDERED: FUROSEMIDE 40 MG/4 ML INJECTABLE VIAL IVPUSH ONE (00:17)
[2019-06-21] MEDS ORDERED: FUROSEMIDE 40 MG/4 ML INJECTABLE VIAL ONE (00:36)
[2019-06-21 00:37] LABS: N-TERMINAL BNP 677.7 pg/ml (5-125)
--- NOTE | 2019-06-21 01:14 | PDOC ---
Documentation entered by Sushma Oliveira SCRIBE, acting as scribe for Celestine Raymond MD. Celestine Raymond MD: This documentation has been prepared by the Tee peterson Nirvannie, SCRIBE, under my direction and personally reviewed by me in its entirety. I confirm that the documentation accurately reflects all work, treatment, procedures, and medical decision making performed by me. Attending Attestation - Resident Resident Name: Amol Ness - ED Attending Attestation I have performed the following: I have examined & evaluated the patient, The case was reviewed & discussed with the resident, I agree w/resident's findings & plan - HPI HPI: 06/21/19 00:34 CC: Shortness of breath HPI: The patient is a 68 year old female, with a significant past medical history of hypertension, hyperlipidemia, arthritis (shoulder), and depression, who presents to the emergency department with, 2 weeks of progressively worsening shortness of breath. She denies recent fevers, chills, headache or dizziness. She denies recent nausea, vomit, diarrhea or constipation. She denies recent dysuria, frequency, urgency or hematuria. Allergies: NKDA Primary Care Physician: Dr. Nataliya Stanley GI: Dr. Tonia Willard - Physicial Exam PE: 06/21/19 01:14 Vitals: Triage Vital signs reviewed General Appearance: No acute distress, well nourished well developed, Head: Atraumatic, Regular rate and rhythm, systolic ejection murmur best auscultated at the cardiac: Right upper heart border Lungs: Fine crackles at the bases bilaterally Abdomen: Soft, non distended, normal bowel sounds, non tender to palpation Extremities: Full range of motion to all extremities, 2+ pitting edema bilaterally symmetric Skin: Warm and dry, no rashes or lesions, no rash, no petechiae Psych: Normal mood, normal affect - Medical Decision Making 06/21/19 01:17 68 years old hypertension recently with change of medication presents to the ED with 2-day history of dyspnea on exertion Chest x-ray shows new cardiomegaly given symptomatology elevated blood pressure will admit for echo and further work-up of dyspnea with exertion Heart Score/ECG Review - ECG Impressions Comment:: 06/21/19 01:18 EKG performed that 2341 demonstrates normal sinus rhythm no ST elevations or T wave inversions Interpreted by me.
[2019-06-21 05:19] LABS: EPI CELLS 0.1 /HPF (0-5/HPF); HYALINE CASTS 0 /lpf (0-8); URINE APPEARANCE CLEAR; URINE BACTERIA 1.5 /hpf (NEGATIVE); URINE BILIRUBIN NEGATIVE (NEGATIVE); URINE COLOR YELLOW; URINE GLUCOSE (UA) NEGATIVE (NEGATIVE); URINE KETONE NEGATIVE (NEGATIVE); URINE LEUK ESTERASE NEGATIVE (NEGATIVE); URINE NITRITE NEGATIVE (NEGATIVE); URINE PROTEIN NEGATIVE (NEGATIVE); URINE RBC 4 /hpf (0-4); URINE UROBILINOGEN 0.2 mg/dL (0.2-1.0); URINE WBC 0 /hpf (0-5)
[2019-06-21] MEDS ORDERED: ACETAMINOPHEN 325 MG TABLET (FP) PO ONE (06:33)
[2019-06-21] MEDS ORDERED: ACETAMINOPHEN 325 MG TABLET (FP) ONE (06:35)
[2019-06-21 06:42] VITALS: BP 153/62; PULSE 67
--- NOTE | 2019-06-21 09:44 | CON.CARD ---
Consult Consult Specialty:: Cardiology Referred by:: Emergency Medicine Reason for Consultation:: Dyspnea - History of Present Illness Chief Complaint: Dyspnea History of Present Illness: The patient is a 68 year old female,past medical history of hypertension, hyperlipidemia, hypothyroidism, CKD, bipolar d/o, peripheral neuropathy, arthritis (shoulder), and depression, last seen on office 05/05/2019 presentws to the emergency department with, 2 weeks of progressively worsening shortness of breath. Patient was d/clark prior to being seen. Allergies: NKDA Primary Care Physician: Dr. Nataliya Stanley GI: Dr. 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 No: Alzheimer's, Dementia, Migraine, Multiple Sclerosis, Peripheral Neuropathy, Parkinson's, Seizure, Syncope, TIA, Vertigo, Other (Pt says she did NOT have a CVA in the past.) - Alcohol/Substance Use Hx Alcohol Use: No - Smoking History Smoking history: Never smoked Have you smoked in the past 12 months: No Home Medications - Allergies Allergies/Adverse Reactions: Allergies Allergy/AdvReac Type Severity Reaction Status Date / Time No Known Allergies Allergy Verified 04/17/19 08:30 - Home Medications Home Medications: Ambulatory Orders Atorvastatin Ca [Lipitor] 10 mg PO HS 11/20/18 Carvedilol [Coreg -] 25 mg PO DAILY 11/20/18 Divalproex Sodium [Depakote ER] 500 mg PO BID 11/20/18 Lorazepam [Ativan] 0.5 mg PO QID PRN 11/20/18 Memantine HCl 5 mg PO BID 11/20/18 Paroxetine HCl [Paxil Cr] 12.5 mg PO DAILY 11/20/18 Paroxetine HCl [Paxil Cr] 37.5 mg PO AM 04/17/19 l-Mefol/A-Cyst/Meb12/Algal Oil [Cerefolin Nac Caplet] 1 each PO DAILY 04/17/19 Amlodipine Besylate [Norvasc -] 5 mg PO DAILY #30 tablet 04/21/19 Aspirin 81 mg PO DAILY 06/21/19 Famotidine 20 mg PO BID 06/21/19 Pantoprazole Sodium 40 mg PO DAILY 06/21/19 Vital Signs: Vital Signs Temperature 98 F 06/20/19 22:58 Pulse Rate 67 06/21/19 06:41 Respiratory Rate 20 06/21/19 06:41 Blood Pressure 153/62 06/21/19 06:41 O2 Sat by Pulse Oximetry (%) 99 06/21/19 06:41 - Other Data Labs, Other Data: CBC, BMP 06/20/19 23:30 06/20/19 23:30 INR, PTT INR 0.87 (0.83-1.09) 06/20/19 23:30 Troponin, BNP 06/20/19 23:30 Troponin I < 0.02 B-Natriuretic Peptide 677.7 H Troponin, BNP 06/20/19 23:30 Troponin I < 0.02 B-Natriuretic Peptide 677.7 H Assessment/Plan 1. Acute on chronic diastolic heart failure 2. Hypertensive heart disease 3. Hyperlipidemia 4. Bipolar d/o P:1. Patient d/clark prior to being seen, will have her f/u in office.
--- NOTE | 2019-06-21 13:35 | EKG ---
Test Reason : Blood Pressure : / mmHG Vent. Rate : 070 BPM Atrial Rate : 070 BPM P-R Int : 148 ms QRS Dur : 084 ms QT Int : 394 ms P-R-T Axes : 058 034 040 degrees QTc Int : 425 ms NORMAL SINUS RHYTHM NORMAL ECG WHEN COMPARED WITH ECG OF 17-APR-2019 08:57, NO SIGNIFICANT CHANGE WAS FOUND Confirmed by SABINA BANSAL MD ([id number]) on 06/21/2019 1:35:03 PM Referred By: Confirmed By:SABINA BANSAL MD
== END 2019-06-21 11:00 | disposition home or self-care (01) | DRG 291 ==
LOC: JER 22:51 → JERBED 06-21 01:18
PROVIDERS: ADMIT Internal Medicine; ATTEND Internal Medicine
DX: I13.0 Hypertensive heart and chronic kidney disease with heart failure and stage 1 through stage 4 chronic kidney disease, or unspecified chronic kidney disease (principal); I50.33 Acute on chronic diastolic (congestive) heart failure; E78.5 Hyperlipidemia, unspecified; M19.019 Primary osteoarthritis, unspecified shoulder; F31.9 Bipolar disorder, unspecified; E03.9 Hypothyroidism, unspecified; G62.9 Polyneuropathy, unspecified; N18.9 Chronic kidney disease, unspecified
CPT/HCPCS: 36415; 71045-TC-FY; 80053; 81003; 82550; 82553; 83880; 84484; 85025; 85610; 85730; 87086; 93005; 93010; 99285-25

== ENCOUNTER 2020-05-25 11:05 | Inpatient (IN) | payer OTHER ==
[2020-05-25 11:15] VITALS: BMI 29.6
[2020-05-25 12:52] LABS: BASO % 0.4 % (0-2.0); EOS % 1.3 % (0-4.5); HEMATOCRIT 35.4 % (32.4-45.2); HEMOGLOBIN 11.6 GM/dL (10.7-15.3); MCH 28.9 pg (25.7-33.7); MCHC 32.7 g/dl (32.0-36.0); MEAN CELL VOLUME 88.2 fl (80-96); MEAN PLT VOLUME 8.1 fl (7.5-11.1); MONO % 10.2 % (3.8-10.2); NEUT % 47.1 % (42.8-82.8); PLATELET COUNT 231 K/MM3 (134-434); RBC 4.02 M/mm3 (3.60-5.2); RDW 13.3 % (11.6-15.6); WHITE BLOOD COUNT 10.1 K/mm3 (4.0-10.0)
[2020-05-25 13:06] LABS: CHLORIDE 98 mmol/L (98-107); POTASSIUM 5.5 mmol/L (3.5-5.1); SODIUM 134 mmol/L (136-145)
[2020-05-25 13:09] LABS: ALBUMIN 3.3 g/dl (3.4-5.0); ANION GAP 7 MMOL/L (8-16); BLOOD UREA NITROGEN 39.6 mg/dL (7-18); CO2 29 mmol/L (21-32); GLUCOSE,RANDOM 178 mg/dL (74-106)
[2020-05-25 13:11] LABS: CHOLESTEROL 178 mg/dL (50-200)
[2020-05-25 13:12] LABS: SGOT/AST 16 U/L (15-37); SGPT/ALT 13 U/L (13-61); TRIGLYCERIDES 305 mg/dL (0-150)
[2020-05-25 13:13] LABS: BILIRUBIN,TOTAL 0.3 mg/dL (0.2-1); LDL CHOLESTEROL (ONLY SJRH) 94 mg/dL (5-100); TOT PROT 6.6 g/dl (6.4-8.2)
[2020-05-25 13:14] LABS: ALK PHOS 84 U/L (45-117); HDL CHOLESTEROL 56 mg/dL (40-60)
[2020-05-25 13:53] LABS: URINE APPEARANCE CLEAR; URINE BILIRUBIN NEGATIVE (NEGATIVE); URINE COLOR YELLOW; URINE GLUCOSE (UA) NEGATIVE (NEGATIVE); URINE KETONE NEGATIVE (NEGATIVE); URINE LEUK ESTERASE NEGATIVE (NEGATIVE); URINE NITRITE NEGATIVE (NEGATIVE); URINE PROTEIN NEGATIVE (NEGATIVE); URINE UROBILINOGEN 0.2 mg/dL (0.2-1.0)
[2020-05-26] MEDS ORDERED: ALPRAZolam 1 MG TABLET PO PRN (00:39)
[2020-05-26] MEDS ORDERED: DIVALPROEX NA *ER* EXTEND REL 500 MG TABLET.SA (FP) PO ONE (00:40)
[2020-05-26] MEDS ORDERED: DIVALPROEX SODIUM 500 MG TABLET E.C. ONE (00:42)
[2020-05-26] MEDS ORDERED: ALPRAZolam 0.25 MG TABLET ONE (00:42)
[2020-05-26] MEDS ORDERED: PT OWN MED DRAWER 7, Y5N ONE ×3 (10:29→21:55)
[2020-05-26] MEDS ORDERED: PARoxetine HCL 10 MG TABLET ONE (10:29)
[2020-05-26] MEDS: PARoxetine HCL 30 MG TABLET PO SCH (10:38)
[2020-05-26] MEDS: LOSARTAN POTASSIUM 50 MG TABLET PO SCH (10:38)
[2020-05-26] MEDS: amLODIPine BESYLATE 5 MG TABLET (FP) PO SCH (10:38)
[2020-05-26] MEDS: DIVALPROEX SODIUM 500 MG TABLET E.C. PO SCH ×2 (10:38→21:57)
[2020-05-26] MEDS: ALPRAZolam 0.25 MG TABLET PO SCH ×2 (10:39→21:58)
[2020-05-26] MEDS: MEMANTINE HCL 5 MG TABLET (UD) PO SCH ×2 (10:39→22:49)
[2020-05-26] MEDS: ATORVASTATIN CA 10 MG TABLET (FP) PO SCH (21:57)
[2020-05-27] MEDS ORDERED: PT OWN MED DRAWER 7, Y5N ONE ×2 (08:48→22:12)
[2020-05-27] MEDS ORDERED: PARoxetine HCL 10 MG TABLET ONE (08:48)
[2020-05-27] MEDS: CLOPIDOGREL BISULFATE 75 MG TABLET (FP) PO SCH (09:10)
[2020-05-27] MEDS: amLODIPine BESYLATE 5 MG TABLET (FP) PO SCH (09:10)
[2020-05-27] MEDS: ALPRAZolam 0.25 MG TABLET PO SCH ×2 (09:11→22:14)
[2020-05-27] MEDS: LOSARTAN POTASSIUM 50 MG TABLET PO SCH (09:11)
[2020-05-27] MEDS: DIVALPROEX SODIUM 500 MG TABLET E.C. PO SCH ×2 (09:11→22:14)
[2020-05-27] MEDS: MEMANTINE HCL 5 MG TABLET (UD) PO SCH ×2 (09:11→22:14)
[2020-05-27] MEDS: PARoxetine HCL 30 MG TABLET PO SCH (09:11)
[2020-05-27 11:41] LABS: POTASSIUM 5.4 mmol/L (3.5-5.1)
[2020-05-27 11:45] LABS: BLOOD UREA NITROGEN 51.5 mg/dL (7-18); CALCIUM 8.8 mg/dL (8.5-10.1)
[2020-05-27 11:48] LABS: CREATININE 1.9 mg/dL (0.55-1.3)
[2020-05-27] MEDS: SODIUM CHLORIDE 1,000 ML IV SCH (13:26)
[2020-05-27] MEDS ORDERED: ACETAMINOPHEN 325 MG TABLET (FP) PO PRN (16:11)
[2020-05-27] MEDS: ATORVASTATIN CA 10 MG TABLET (FP) PO SCH (22:14)
[2020-05-28] MEDS: SODIUM CHLORIDE 1,000 ML IV SCH (02:32)
[2020-05-28 06:15] VITALS: PULSE 65
[2020-05-28 07:07] LABS: BASO % 0.4 % (0-2.0); EOS % 4.6 % (0-4.5); HEMATOCRIT 33.3 % (32.4-45.2); HEMOGLOBIN 10.7 GM/dL (10.7-15.3); LYMPH % 54.4 % (8-40); MCH 28.7 pg (25.7-33.7); MCHC 32.3 g/dl (32.0-36.0); MEAN PLT VOLUME 8.1 fl (7.5-11.1); NEUT % 29.6 % (42.8-82.8); PLATELET COUNT 232 K/MM3 (134-434); RBC 3.74 M/mm3 (3.60-5.2); WHITE BLOOD COUNT 7.2 K/mm3 (4.0-10.0)
[2020-05-28 08:05] LABS: POTASSIUM 5.2 mmol/L (3.5-5.1)
[2020-05-28 08:37] LABS: BLOOD UREA NITROGEN 40.7 mg/dL (7-18)
[2020-05-28 08:38] LABS: CALCIUM 8.9 mg/dL (8.5-10.1)
[2020-05-28 08:40] LABS: CREATININE 1.6 mg/dL (0.55-1.3)
[2020-05-28] MEDS ORDERED: PT OWN MED DRAWER 7, Y5N ONE (09:54)
[2020-05-28] MEDS ORDERED: PAROXETINE HCL 20 MG, PAROXETINE HCL 10 MG PO SCH (10:00)
[2020-05-28] MEDS: MEMANTINE HCL 5 MG TABLET (UD) PO SCH (10:05)
[2020-05-28] MEDS: amLODIPine BESYLATE 5 MG TABLET (FP) PO SCH (10:05)
[2020-05-28] MEDS: CLOPIDOGREL BISULFATE 75 MG TABLET (FP) PO SCH (10:05)
[2020-05-28] MEDS: DIVALPROEX SODIUM 500 MG TABLET E.C. PO SCH (10:05)
[2020-05-28] MEDS: ALPRAZolam 0.25 MG TABLET PO SCH (10:05)
[2020-05-28] MEDS ORDERED: PARoxetine HCL 10 MG TABLET PO SCH (10:15)
[2020-05-28 11:00] VITALS: BP 136/66; TEMP 98.4
[2020-05-28] MEDS ORDERED: SODIUM POLYSTYRENE SULFONATE 15 GM/60 ML BOTTLE PO ONE (11:14)
== END 2020-05-28 14:52 | disposition home or self-care (01) | DRG 684 ==
LOC: JER 11:05 → JERBED 14:06 → J4S 05-26 05:05
PROVIDERS: ADMIT Internal Medicine; ATTEND Internal Medicine
DX: N17.9 Acute kidney failure, unspecified (principal); I10 Essential (primary) hypertension; E78.5 Hyperlipidemia, unspecified; M19.019 Primary osteoarthritis, unspecified shoulder; F32.9 Major depressive disorder, single episode, unspecified; R26.81 Unsteadiness on feet; M62.81 Muscle weakness (generalized); E86.0 Dehydration; R41.0 Disorientation, unspecified
CPT/HCPCS: 36415; 70450-TC; 70551-TC; 71045-TC-FY; 80048; 80053; 80061; 80164; 81003; 82550; 83721; 84484; 85025; 86850; 86900; 86901; 93005; 93010; 93880-TC; 99285-25; C9803; U0003

== ENCOUNTER 2020-07-04 08:25 | Emergency (ER) | payer OTHER ==
[2020-07-04 08:32] VITALS: BP 130/47; PULSE 66; TEMP 97.2; BMI 29.2
[2020-07-04 10:00] LABS: BASO % 0.6 % (0-2.0); EOS % 2.3 % (0-4.5); HEMATOCRIT 36.8 % (32.4-45.2); HEMOGLOBIN 11.9 GM/dL (10.7-15.3); LYMPH % 39.1 % (8-40); MCH 28.4 pg (25.7-33.7); MCHC 32.4 g/dl (32.0-36.0); MEAN CELL VOLUME 87.6 fl (80-96); MEAN PLT VOLUME 7.8 fl (7.5-11.1); MONO % 10.5 % (3.8-10.2); NEUT % 47.5 % (42.8-82.8); PLATELET COUNT 268 K/MM3 (134-434); RDW 13.8 % (11.6-15.6); WHITE BLOOD COUNT 6.2 K/mm3 (4.0-10.0)
[2020-07-04 10:15] LABS: INR 0.93 (0.83-1.09); PROTHROMBIN TIME (PATIENT) 11.3 SEC (9.7-13.0)
[2020-07-04 10:27] LABS: POTASSIUM 5.8 mmol/L (3.5-5.1)
[2020-07-04 10:29] LABS: CALCIUM 9.5 mg/dL (8.5-10.1)
[2020-07-04 10:30] LABS: ALBUMIN 3.6 g/dl (3.4-5.0); BLOOD UREA NITROGEN 42.7 mg/dL (7-18)
[2020-07-04 10:33] LABS: CREATININE 1.9 mg/dL (0.55-1.3)
[2020-07-04 10:34] LABS: BILIRUBIN,TOTAL 0.2 mg/dL (0.2-1); TOT PROT 7.1 g/dl (6.4-8.2)
[2020-07-04 14:05] LABS: HEMATOCRIT 36.8 % (32.4-45.2); HEMOGLOBIN 11.8 GM/dL (10.7-15.3); MEAN CELL VOLUME 87.5 fl (80-96); MEAN PLT VOLUME 7.7 fl (7.5-11.1); PLATELET COUNT 265 K/MM3 (134-434); RDW 13.6 % (11.6-15.6); WHITE BLOOD COUNT 6.6 K/mm3 (4.0-10.0)
[2020-07-04 14:23] LABS: POTASSIUM 5.8 mmol/L (3.5-5.1)
[2020-07-04 14:25] LABS: BLOOD UREA NITROGEN 40.2 mg/dL (7-18); CALCIUM 9.6 mg/dL (8.5-10.1)
[2020-07-04 14:29] LABS: CREATININE 1.7 mg/dL (0.55-1.3)
[2020-07-04] MEDS ORDERED: INSULIN REGULAR HUMAN 100 UNITS/ML *VIAL IVPUSH ONE (14:32)
[2020-07-04] MEDS ORDERED: SODIUM CHLORIDE 500 ML IV STA (14:32)
[2020-07-04] MEDS ORDERED: DEXTROSE 50%-WATER - 25 GM/50 ML VIAL IVPUSH ONE (14:33)
[2020-07-04] MEDS ORDERED: FUROSEMIDE 40 MG/4 ML INJECTABLE VIAL IVPUSH ONE (14:34)
== END 2020-07-04 14:48 | disposition left against medical advice (07) ==
LOC: SUPCPDRO 08:25 → JER 08:25
DX: K62.5 Hemorrhage of anus and rectum (principal); E87.5 Hyperkalemia; N18.9 Chronic kidney disease, unspecified
CPT/HCPCS: 36415; 80048; 80053; 82272; 85025; 85027; 85610; 85730; 93005; 93010; 99284-25

== ENCOUNTER 2020-10-10 10:39 | Inpatient (IN) | payer OTHER ==
[2020-10-10 11:52] LABS: BASO % 0.6 % (0-2.0); EOS % 0.7 % (0-4.5); HEMATOCRIT 33.8 % (32.4-45.2); HEMOGLOBIN 11.1 GM/dL (10.7-15.3); LYMPH % 25.2 % (8-40); MCH 28.4 pg (25.7-33.7); MCHC 32.9 g/dl (32.0-36.0); MEAN CELL VOLUME 86.2 fl (80-96); MEAN PLT VOLUME 8.8 fl (7.5-11.1); MONO % 18.5 % (3.8-10.2); PLATELET COUNT 224 K/MM3 (134-434); RBC 3.92 M/mm3 (3.60-5.2); RDW 13.7 % (11.6-15.6); WHITE BLOOD COUNT 8.6 K/mm3 (4.0-10.0)
[2020-10-10 11:58] LABS: PROTHROMBIN TIME (PATIENT) 12.1 SEC (9.7-13.0)
[2020-10-10 12:00] LABS: ACTIVATED PTT 31.7 SECONDS (25.2-36.5)
[2020-10-10 12:07] LABS: CHLORIDE 101 mmol/L (98-107); POTASSIUM 4.3 mmol/L (3.5-5.1); SODIUM 135 mmol/L (136-145)
[2020-10-10 12:10] LABS: CALCIUM 9.1 mg/dL (8.5-10.1); GLUCOSE,RANDOM 118 mg/dL (74-106)
[2020-10-10 12:11] LABS: ANION GAP 6 MMOL/L (8-16); CO2 27 mmol/L (21-32)
[2020-10-10 12:12] LABS: CHOLESTEROL 145 mg/dL (50-200); TRIGLYCERIDES 139 mg/dL (0-150)
[2020-10-10 12:13] LABS: LDL CHOLESTEROL (ONLY SJRH) 72 mg/dL (5-100)
[2020-10-10 12:14] LABS: CREATININE 1.6 mg/dL (0.55-1.3); HDL CHOLESTEROL 54 mg/dL (40-60); SGOT/AST 12 U/L (15-37); SGPT/ALT 13 U/L (13-61)
[2020-10-10 12:15] LABS: BILIRUBIN,TOTAL 0.6 mg/dL (0.2-1); TOT PROT 7.1 g/dl (6.4-8.2)
[2020-10-10 12:17] LABS: ALK PHOS 75 U/L (45-117)
[2020-10-10] MEDS: SODIUM CHLORIDE 1,000 ML IV SCH (12:27)
[2020-10-10 13:38] LABS: EPI CELLS 15 /uL (0-25.1); HYALINE CASTS 1 /uL (0-3.1); URINE APPEARANCE CLEAR; URINE BACTERIA 142 /uL (0-1359); URINE BILIRUBIN NEGATIVE (NEGATIVE); URINE COLOR YELLOW; URINE GLUCOSE (UA) NEGATIVE (NEGATIVE); URINE KETONE NEGATIVE (NEGATIVE); URINE LEUK ESTERASE NEGATIVE (NEGATIVE); URINE NITRITE NEGATIVE (NEGATIVE); URINE PROTEIN NEGATIVE (NEGATIVE); URINE RBC 11 /uL (0-23.9); URINE WBC 6 /uL (0-25.8)
[2020-10-10] MEDS ORDERED: ASPIRIN 325 MG ENTERIC COATED TABLET (FP) ONE (16:26)
[2020-10-10] MEDS ORDERED: ALPRAZolam 0.25 MG TABLET PO PRN ×2 (16:26→16:29)
[2020-10-10] MEDS: ASPIRIN 325 MG TABLET PO SCH (16:29)
[2020-10-10] MEDS ORDERED: DIVALPROEX SODIUM 500 MG TABLET E.C. ONE (21:57)
[2020-10-10] MEDS ORDERED: ATORVASTATIN CA 10 MG TABLET (FP) ONE (21:58)
[2020-10-10] MEDS: DIVALPROEX SODIUM 500 MG TABLET E.C. PO SCH (22:29)
[2020-10-10] MEDS: ATORVASTATIN CA 10 MG TABLET (FP) PO SCH (22:29)
[2020-10-11] MEDS: MEMANTINE HCL 5 MG TABLET (UD) PO SCH ×3 (00:16→21:44)
[2020-10-11 07:07] LABS: BASO % 0.6 % (0-2.0); EOS % 2.1 % (0-4.5); HEMATOCRIT 31.3 % (32.4-45.2); HEMOGLOBIN 10.2 GM/dL (10.7-15.3); MCH 28.3 pg (25.7-33.7); MCHC 32.7 g/dl (32.0-36.0); MEAN CELL VOLUME 86.4 fl (80-96); MEAN PLT VOLUME 8.6 fl (7.5-11.1); MONO % 19.5 % (3.8-10.2); NEUT % 47.8 % (42.8-82.8); PLATELET COUNT 222 K/MM3 (134-434); RBC 3.62 M/mm3 (3.60-5.2); RDW 13.8 % (11.6-15.6); WHITE BLOOD COUNT 8.1 K/mm3 (4.0-10.0)
[2020-10-11 07:27] LABS: POTASSIUM 4.2 mmol/L (3.5-5.1)
[2020-10-11 07:30] LABS: CALCIUM 8.9 mg/dL (8.5-10.1)
[2020-10-11 07:31] LABS: BLOOD UREA NITROGEN 27.1 mg/dL (7-18); MAGNESIUM 2.4 mg/dL (1.8-2.4)
[2020-10-11 07:34] LABS: CREATININE 1.3 mg/dL (0.55-1.3)
[2020-10-11 08:57] VITALS: BMI 26.1
[2020-10-11] MEDS ORDERED: PARoxetine HCL 30 MG TABLET PO SCH (10:00)
[2020-10-11] MEDS ORDERED: PT OWN MED DRAWER 7, Y5N ONE ×2 (10:39→21:19)
[2020-10-11] MEDS: ASPIRIN 325 MG TABLET PO SCH (10:42)
[2020-10-11] MEDS: DIVALPROEX SODIUM 500 MG TABLET E.C. PO SCH ×2 (10:42→21:44)
[2020-10-11] MEDS: PAROXETINE HCL 20 MG, PAROXETINE HCL 10 MG PO SCH (10:42)
[2020-10-11] MEDS: LOSARTAN POTASSIUM 50 MG TABLET PO SCH (10:42)
[2020-10-11] MEDS: amLODIPine BESYLATE 10 MG TABLET (FP) PO SCH (10:42)
[2020-10-11] MEDS: CLOPIDOGREL BISULFATE 75 MG TABLET (FP) PO SCH (10:42)
[2020-10-11] MEDS: SODIUM CHLORIDE 1,000 ML IV SCH (14:48)
[2020-10-11] MEDS: ATORVASTATIN CA 10 MG TABLET (FP) PO SCH (21:44)
[2020-10-12 08:03] VITALS: PULSE 67
[2020-10-12] MEDS ORDERED: PT OWN MED DRAWER 7, Y5N ONE (09:13)
[2020-10-12] MEDS: MEMANTINE HCL 5 MG TABLET (UD) PO SCH (09:25)
[2020-10-12] MEDS: CLOPIDOGREL BISULFATE 75 MG TABLET (FP) PO SCH (09:25)
[2020-10-12] MEDS: ASPIRIN 325 MG TABLET PO SCH (09:25)
[2020-10-12] MEDS: DIVALPROEX SODIUM 500 MG TABLET E.C. PO SCH (09:25)
[2020-10-12] MEDS: PAROXETINE HCL 20 MG, PAROXETINE HCL 10 MG PO SCH (09:25)
[2020-10-12] MEDS: amLODIPine BESYLATE 10 MG TABLET (FP) PO SCH (09:25)
[2020-10-12] MEDS: LOSARTAN POTASSIUM 50 MG TABLET PO SCH (09:25)
[2020-10-12 11:02] VITALS: BP 148/58; TEMP 98.8
== END 2020-10-12 12:26 | disposition home or self-care (01) | DRG 69 ==
LOC: JER 10:39 → JERBED 15:43 → J4S 10-11 03:48
PROVIDERS: ADMIT Internal Medicine; ATTEND Internal Medicine
DX: G45.9 Transient cerebral ischemic attack, unspecified (principal); I10 Essential (primary) hypertension; E78.5 Hyperlipidemia, unspecified; F31.9 Bipolar disorder, unspecified; R47.81 Slurred speech; N39.3 Stress incontinence (female) (male); G24.01 Drug induced subacute dyskinesia
CPT/HCPCS: 36415; 70450-TC; 70551-TC; 71045-TC-FY; 80048; 80053; 80061; 80164; 81003; 82550; 82962; 83721; 83735; 84443; 84484; 85025; 85610; 85730; 86850; 86900; 86901; 87077; 87086; 87186; 93005; 93010; 97116-GP; 97161-GP; 99285-25; C9803; U0003; U0005